=== PATIENT | male | born 1965 | race Hispanic/Latino ===

== ENCOUNTER 2017-09-09 21:02 | Inpatient (IN) | payer SELFPAY ==
--- NOTE | 2017-09-09 21:14 | CP.PCM.CON ---
Past Patient History - Tetanus Immunizations Tetanus Immunization: Unknown - Past Social History Smoking Status: Current Some Days Smoker - CARDIAC Hx Hypertension: Yes - PULMONARY Hx Respiratory Disorders: No - NEUROLOGICAL Hx Neurological Disorder: No - HEENT Hx HEENT Problems: No - RENAL Hx Chronic Kidney Disease: No - ENDOCRINE/METABOLIC Hx Endocrine Disorders: No - HEMATOLOGICAL/ONCOLOGICAL Hx Blood Disorders: No - INTEGUMENTARY Hx Dermatological Problems: No - MUSCULOSKELETAL/RHEUMATOLOGICAL Hx Gout: Yes - GASTROINTESTINAL Hx Gastrointestinal Disorders: No - GENITOURINARY/GYNECOLOGICAL Hx Genitourinary Disorders: No - PSYCHIATRIC Hx Anxiety: Yes Hx Depression: Yes Hx Emotional Abuse: No Hx Physical Abuse: No Hx Substance Use: No Meds Allergies/Adverse Reactions: Allergies Allergy/AdvReac Type Severity Reaction Status Date / Time Penicillins Allergy RASH Verified 09/09/17 21:06 Results - Vital Signs Recent Vital Signs: Last Vital Signs Temp 98.4 F 09/09/17 21:11 Pulse 100 H 09/09/17 21:11 Resp 18 09/09/17 21:11 BP 165/115 H 09/09/17 21:11 Pulse Ox 98 09/09/17 21:11
[2017-09-09 21:16] LABS: BASO # 0.04 K/mm3 (0.0-2.0); BASO % 0.4 % (0.0-3.0); EOS # 0.3 (0.0-0.7); EOS % 3.2 % (1.5-5.0); GRAN # 4.93 (1.4-6.5); GRAN % 53.6 % (50.0-68.0); HEMOGLOBIN 16.5 g/dL (14.0-18.0); LYMPH # 2.7 (1.2-3.4); LYMPH % 29.7 % (22.0-35.0); MEAN CELL VOLUME 90.3 fl (80.0-105.0); MEAN CORPUSCULAR HEMOGLOBIN 32.1 pg (25.0-35.0); MEAN CORPUSCULAR HGB CONC 35.6 g/dl (31.0-37.0); MEAN PLATELET VOLUME 9.9 fl (7.0-11.0); MONO # 1.2 (0.1-0.6); MONO % 13.1 % (1.0-6.0); RBC 5.14 10^6/uL (3.5-6.1); WHITE BLOOD COUNT 9.2 10^3/ul (4.5-11.0)
[2017-09-09 21:23] LABS: ALB/GLOB RATIO 1.6 (1.1-1.8); ALBUMIN 4.4 g/dL (3.0-4.8); ALT/SGPT 49 U/L (7-56); AST/SGOT 37 U/L (17-59); BLOOD UREA NITROGEN 19 mg/dL (7-21); CALCIUM 8.9 mg/dL (8.4-10.5); GFR AFRICAN-AMERICAN > 60; GFR NON-AFRICAN AMERICAN > 60
[2017-09-09] MEDS ORDERED: Phenylephrine 10 mg/ml Inj ONE (21:24)
[2017-09-09] MEDS ORDERED: Midazolam 2 MG/2 ML VIAL ONE ×2 (21:24→21:45)
[2017-09-09] MEDS ORDERED: Lidocaine 2% Inj (20ml) ONE (21:24)
--- NOTE | 2017-09-09 21:24 | CP.PCM.HP ---
<Lili Pritchard - Last Filed: 09/09/17 21:50> History of Present Illness - History of Present Illness History of Present Illness: 51yo male PMHx HTN was BIBA from [facility] ER for chest pain. Patient reports he began to experience an epigastric burning sensation that started 1-2 hours ago. Patient was swimming in the pool with his son at the time and eating a meal when he began to experience some left shoulder pain that radiated to his left back. Patient described the pain as more of a discomfort like he had " eaten icecream too fast." He denied any associated nausea, vomiting, palpitations, dyspnea, diaphoresis, and dizziness. Patient took asa 81mg prior to going to the [facility] ER. Prior to arrival at [facility] patient was given 180mg brillinta and 5000U heparin bolus. On complete ROS patient denied any fever, chills, headache, cough, abd pain, bowel/bladder complaints, pain/swelling in his legs b/l. He denied any recent travel/sick contacts. PMHx: HTN PSurgHx: denies Meds: Benicar- compliant ALL: PCN- rash SocHx: tobacco use 1ppd [quit for 5 years 6 years ago], EtOH socially [1-2 glasses with a meal], denies drug use. Business open winder FamHx: father liver ca; denies CVA/[place] PMD: Dr Goss Pharmacy: [facility] Present on Admission - Present on Admission Any Indicators Present on Admission: No Review of Systems - Review of Systems All systems: reviewed and no additional remarkable complaints except Review of Systems: as per HPI Past Patient History - Tetanus Immunizations Tetanus Immunization: Unknown - Past Social History Smoking Status: Current Some Days Smoker - CARDIAC Hx Hypertension: Yes - PULMONARY Hx Respiratory Disorders: No - NEUROLOGICAL Hx Neurological Disorder: No - HEENT Hx HEENT Problems: No - RENAL Hx Chronic Kidney Disease: No - ENDOCRINE/METABOLIC Hx Endocrine Disorders: No - HEMATOLOGICAL/ONCOLOGICAL Hx Blood Disorders: No - INTEGUMENTARY Hx Dermatological Problems: No - MUSCULOSKELETAL/RHEUMATOLOGICAL Hx Gout: Yes - GASTROINTESTINAL Hx Gastrointestinal Disorders: No - GENITOURINARY/GYNECOLOGICAL Hx Genitourinary Disorders: No - PSYCHIATRIC Hx Anxiety: Yes Hx Depression: Yes Hx Emotional Abuse: No Hx Physical Abuse: No Hx Substance Use: No Meds Allergies/Adverse Reactions: Allergies Allergy/AdvReac Type Severity Reaction Status Date / Time Penicillins Allergy RASH Verified 09/09/17 21:06 Physical Exam - Constitutional Appears: Non-toxic, No Acute Distress - Head Exam Head Exam: ATRAUMATIC, NORMAL INSPECTION, NORMOCEPHALIC - Eye Exam Eye Exam: EOMI, Normal appearance, PERRL. absent: Conjunctival injection, Scleral icterus Pupil Exam: NORMAL ACCOMODATION - ENT Exam ENT Exam: Mucous Membranes Moist - Neck Exam Neck exam: Positive for: Full Rom - Respiratory Exam Respiratory Exam: Clear to Auscultation Bilateral, NORMAL BREATHING PATTERN. absent: Accessory Muscle Use, Rales, Rhonchi, Wheezes - Cardiovascular Exam Cardiovascular Exam: Tachycardia, +S1, +S2. absent: Systolic Murmur - GI/Abdominal Exam GI & Abdominal Exam: Normal Bowel Sounds, Soft. absent: Firm, Guarding, Rigid, Tenderness - Rectal Exam Rectal Exam: Deferred - Extremities Exam Extremities exam: Positive for: normal capillary refill, normal inspection, pedal pulses present. Negative for: pedal edema - Neurological Exam Neurological exam: Alert, Oriented x3 - Psychiatric Exam Psychiatric exam: Normal Affect, Normal Mood - Skin Skin Exam: Dry, Intact Additional comments: erythematous (sunburn) Results - Vital Signs Recent Vital Signs: Last Vital Signs Temp 98.4 F 09/09/17 21:11 Pulse 100 H 09/09/17 21:11 Resp 18 09/09/17 21:11 BP 165/115 H 09/09/17 21:11 Pulse Ox 98 09/09/17 21:11 - Labs Result Diagrams: 09/09/17 21:08 09/09/17 21:08 Labs: Laboratory Results - last 24 hr 09/09/17 21:08 WBC 9.2 RBC 5.14 Hgb 16.5 Hct 46.4 MCV 90.3 MCH 32.1 MCHC 35.6 RDW 14.0 Plt Count 219 MPV 9.9 Gran % 53.6 Lymph % (Auto) 29.7 [place] % (Auto) 13.1 H Eos % (Auto) 3.2 Baso % (Auto) 0.4 Gran # 4.93 Lymph # (Auto) 2.7 [place] # (Auto) 1.2 H Eos # (Auto) 0.3 Baso # (Auto) 0.04 Assessment & Plan - Assessment and Plan (Free Text) Assessment: 51yo male PMHx HTN [facility]. Code heart called for inferior [place] with ST elevations in lead II, III, AVF. Patient received ASA 81 , Brilinta 180, and Heparin 5000u bolus prior to be transferred for cardiac cath with Dr. Smallwood. Patient to be admitted to CCU for observation post cath. Additional reccs by cardio appreciated. Discussed with Dr. Gareth Pritchard PGY2 <Xavier Servin - Last Filed: 09/10/17 01:47> Results - Vital Signs Recent Vital Signs: Last Vital Signs Temp 98.0 F 09/09/17 22:28 Pulse 87 09/09/17 22:43 Resp 17 09/09/17 22:28 BP 149/87 09/09/17 22:43 Pulse Ox 99 09/09/17 21:26 - Labs Result Diagrams: 09/09/17 21:08 09/09/17 21:08 Labs: Laboratory Results - last 24 hr 09/09/17 09/09/17 22:27 23:06 Blood Type O POSITIVE Blood Type Confirm O POSITIVE Antibody Screen Negative BBK History Checked No verified bt Attending/Attestation - Attestation I have personally seen and examined this patient.: Yes I have fully participated in the care of the patient.: Yes I have reviewed all pertinent clinical information: Yes Notes (Text): Patient seen and examined with the residents. Agree with above chest pain attributed to ACS - code Heart called CAD and PCI with ALEJANDRO to the RCA Cardio to follow
[2017-09-09] MEDS ORDERED: Iodixanol 320 MG/ML 200 ML BOTTLE IV ONE (21:25)
[2017-09-09] MEDS ORDERED: Iodixanol 320 MG/ML 100 ML BOTTLE IV ONE (21:25)
[2017-09-09] MEDS ORDERED: Iohexol 350mgl/ml 50 ML ONE (21:25)
--- NOTE | 2017-09-09 21:25 | ED PDOC ---
Arrival/HPI - General Chief Complaint: Chest Pain Time Seen by Provider: 09/09/17 21:04 Historian: Patient - Critical Care Critical Care Minutes: 45 minutes - History of Present Illness Narrative History of Present Illness (Text): 09/09/17 21:02 A 51 year old male, whose past medical history includes hypertension, is brought in by EMS presents to the emergency department complaining of chest pain , left shoulder pain, and back pain 1 hour [employer]. Patient was originally at the [facility] ER and was diagnosed with STEMI. Aspirin, Brilinta, and Heparin were initiated. Patient states pain is resolving, with severity rate of 1/10 at this time. Patient mentions he has no history of ND. Patient denies any other complaints. PMD: Dr. Goss Past Medical History - Provider Review Nursing Documentation Reviewed: Yes - Tetanus Immunization Tetanus Immunization: Unknown - Cardiac Hx Hypertension: Yes - Pulmonary Hx Respiratory Disorders: No - Neurological Hx Neurological Disorder: No - HEENT Hx HEENT Disorder: No - Renal Hx Renal Disorder: No - Endocrine/Metabolic Hx Endocrine Disorders: No - Hematological/Oncological Hx Blood Disorders: No - Integumentary Hx Dermatological Disorder: No - Musculoskeletal/Rheumatological Hx Gout: Yes - Gastrointestinal Hx Gastrointestinal Disorders: No - Genitourinary/Gynecological Hx Genitourinary Disorders: No - Psychiatric Hx Anxiety: Yes Hx Depression: Yes Hx Emotional Abuse: No Hx Physical Abuse: No Hx Substance Use: No - Past Surgical History Past Surgical History: No Previous - Suicidal Assessment Feels Threatened In Home Enviroment: No Family/Social History - Physician Review Nursing Documentation Reviewed: Yes Family/Social History: No Known Family HX Smoking Status: Current Some Days Smoker Hx Alcohol Use: No Hx Substance Use: No Hx Substance Use Treatment: No Allergies/Home Meds Allergies/Adverse Reactions: Allergies Penicillins Allergy (Verified 09/09/17 21:06) RASH Home Medications: Home Meds Medication Instructions Recorded Confirmed Olmesartan Medoxomil [Benicar] DAILY 09/09/17 Review of Systems - Physician Review All systems were reviewed & negative as marked: Yes - Review of Systems Constitutional: absent: Fevers, Night Sweats Respiratory: absent: SOB, Cough Cardiovascular: Chest Pain (resolving upon arrival to the ER (currently 1/10 severity)). absent: Palpitations Gastrointestinal: absent: Abdominal Pain, Diarrhea, Nausea, Vomiting Musculoskeletal: Back Pain, Other (left shoulder pain) Neurological: absent: Headache, Dizziness, Focal Weakness, Gait Changes Psychiatric: absent: Anxiety Physical Exam Vital Signs Reviewed: Yes Vital Signs Temp Pulse Resp BP Pulse Ox 09/09/17 21:21 98 H 28 H 151/100 H 97 09/09/17 21:11 98.4 F 100 H 18 165/115 H 98 09/09/17 21:08 102 H 24 165/115 H 97 Temperature: Afebrile Blood Pressure: Hypertensive Pulse: Regular Respiratory Rate: Normal Appearance: Positive for: Well-Appearing Pain Distress: None Mental Status: Positive for: Alert and Oriented X 3 - Systems Exam Head: Present: Atraumatic, Normocephalic Pupils: Present: PERRL Extroacular Muscles: Present: EOMI Conjunctiva: Present: Normal Mouth: Present: Moist Mucous Membranes Neck: Present: Normal Range of Motion Respiratory/Chest: Present: Clear to Auscultation, Good Air Exchange. No: Respiratory Distress, Accessory Muscle Use Cardiovascular: Present: Regular Rate and Rhythm, Normal S1, S2. No: Murmurs Abdomen: No: Tenderness, Distention, Peritoneal Signs Back: Present: Normal Inspection Upper Extremity: Present: Normal Inspection. No: Cyanosis, Edema Lower Extremity: Present: Normal Inspection. No: Edema Neurological: Present: GCS=15, CN II-XII Intact, Speech Normal Skin: Present: Warm, Dry, Normal Color. No: Rashes Psychiatric: Present: Alert, Oriented x 3, Normal Insight, Normal Concentration Medical Decision Making ED Course and Treatment: 09/09/17 21:06 Impression: 51 year old male with chest pain, left shoulder pain, and back pain. Physical exam is benign. Plan: -- EKG -- Chest X-ray -- Labs -- Urinalysis -- Reassess and disposition Progress Notes: 09/09/17 21:02 Code heart called. - Lab Interpretations Lab Results: 09/09/17 21:08 09/09/17 21:08 Lab Results 09/09/17 21:08: Sodium 141, Potassium 3.3 L, Chloride 105, Carbon Dioxide 21, Anion Gap 18, BUN 19, Creatinine 1.0, Est GFR ( Amer) > 60, Est GFR (Non- Af Amer) > 60, Random Glucose 124 H, Calcium 8.9, Magnesium 2.0, Total Bilirubin 0.5, AST 37, ALT 49, Alkaline Phosphatase 91, Lactate Dehydrogenase 375, Total Creatine Kinase 135, Troponin I Pending, Total Protein 7.2, Albumin 4.4, Globulin 2.8, Albumin/Globulin Ratio 1.6 09/09/17 21:08: WBC 9.2, RBC 5.14, Hgb 16.5, Hct 46.4, MCV 90.3, MCH 32.1, MCHC 35.6, RDW 14.0, Plt Count 219, MPV 9.9, Gran % 53.6, Lymph % (Auto) 29.7, [place] % (Auto) 13.1 H, Eos % (Auto) 3.2, Baso % (Auto) 0.4, Gran # 4.93, Lymph # (Auto ) 2.7, [place] # (Auto) 1.2 H, Eos # (Auto) 0.3, Baso # (Auto) 0.04 - RAD Interpretation Radiology Orders: 09/09/17 21:06 CHEST PORTABLE [RAD] Stat - Scribe Statement The provider has reviewed the documentation as recorded by the Pacheco Yoder Provider Scribe Attestation: All medical record entries made by the Lauraibmontez were at my direction and personally dictated by me. I have reviewed the chart and agree that the record accurately reflects my personal performance of the history, physical exam, medical decision making, and the department course for this patient. I have also personally directed, reviewed, and agree with the discharge instructions and disposition. Disposition/Present on Arrival - Present on Arrival History of DVT/PE: No History of Uncontrolled Diabetes: No Urinary Catheter: No History of Decub. Ulcer: No History Surgical Site Infection Following: None - Disposition
[2017-09-09 21:29] LABS: INR 0.94 (0.93-1.08); PROTHROMBIN TIME 10.7 SECONDS (9.4-12.5)
[2017-09-09 21:34] LABS: TROPONIN I 0.01 ng/mL
[2017-09-09 21:41] LABS: PARTIAL THROMBOPLASTIN TIME 147.9 Seconds (25.1-36.5)
[2017-09-09] MEDS ORDERED: Sodium Chloride 0.9% 1,000 ML IV SCH (22:15)
[2017-09-09] MEDS ORDERED: Potassium Chloride 20 mEq ER Tab PO ONE (22:39)
[2017-09-09] MEDS: Morphine 2 mg/ml ISec IVP PRN (22:43)
[2017-09-09 23:08] VITALS: BMI 36.1
[2017-09-10] MEDS: Morphine 2 mg/ml ISec IVP PRN (03:13)
--- NOTE | 2017-09-10 04:07 | CARDCATH ---
PROCEDURE DATE: 09/09/2017 CARDIAC CATHETERIZATION INTERVENTION REPORT PROCEDURES: 1. Selective left and right coronary angiography. 2. Percutaneous coronary intervention of right coronary artery with drug-eluting stent. 3. Right femoral arteriography. 4. Angio-Seal deployment. HISTORY: This is a 51-year-old man with the history of hypertension, tobacco abuse, who [facility] with the chest [facility]. EKG showed evidence of acute inferior wall myocardial infarction, was transferred emergently for emergency catheterization. INDICATION: Acute myocardial infarction. FINDINGS: HEMODYNAMICS: The aortic pressure was 150/70. Left ventricular pressure was not measured. CORONARY ANATOMY: 1. Left mainstem was long and normal. 2. Left anterior descending artery had mild diffuse irregularities present in its mid and distal segment. The diagonal branches had evidence of mild diffuse disease. 3. Left circumflex artery had evidence of [id number] irregularities in its mid portion up to 50% severity. The obtuse marginal branches had no significant disease. 4. The right coronary artery was large and dominant. This had a long complex irregular stenosis in the early midportion of the vessel varying from 80% to 90% in severity with the evidence of thrombus. Distally the vessel had diffuse irregularities with 50% lesion in the early distal segment of the vessel. The PDA and PLV branches were fairly free of disease. CORONARY INTERVENTION: A total of 7000 units of intravenous heparin was administered. A JR4 guide catheter was utilized and the lesion in the RCA was successfully coursed with the use of a [place] wire. Following this the inflation was performed with the use of 3 x 12 mm balloon in the region of the stenosis. The balloon was removed and following this a 3.5 x 26 mm Resolute [place] drug-eluting stent was advanced and deployed to 16 atmospheres. There was 0% residual stenosis following the intervention. KATHERIN grade 3 flow was present at the end of the procedure. RIGHT FEMORAL ARTERIOGRAPHY: A right femoral arteriogram was performed in the GIRON projection. This revealed no evidence of significant disease and appropriate level of arterial puncture. The puncture site was closed then with deployment of an Angio-Seal device. CONCLUSION: 1. ST myocardial infarction secondary to severe right coronary artery stenosis is successfully treated with drug-eluting stent. 2. Moderate circumflex and distal right coronary artery disease. RECOMMENDATIONS: Patient will be admitted to CCU and continue on aspirin, Brilinta, statin and beta-anika therapy. Serial enzymes and electrocardiograms will be obtained. Smoking abstinence was recommended. Ezequile Powell MD cc: Olivier Goss MD
[2017-09-10 06:26] LABS: BASO # 0.03 K/mm3 (0.0-2.0); BASO % 0.3 % (0.0-3.0); EOS # 0.2 (0.0-0.7); EOS % 1.9 % (1.5-5.0); GRAN # 5.94 (1.4-6.5); GRAN % 59.9 % (50.0-68.0); HEMOGLOBIN 15.9 g/dL (14.0-18.0); LYMPH # 2.2 (1.2-3.4); LYMPH % 22.1 % (22.0-35.0); MEAN CELL VOLUME 91.1 fl (80.0-105.0); MEAN CORPUSCULAR HEMOGLOBIN 31.6 pg (25.0-35.0); MEAN CORPUSCULAR HGB CONC 34.7 g/dl (31.0-37.0); MEAN PLATELET VOLUME 9.8 fl (7.0-11.0); MONO # 1.6 (0.1-0.6); MONO % 15.8 % (1.0-6.0); RBC 5.03 10^6/uL (3.5-6.1); RED CELL DISTRIBUTION WIDTH 14.2 % (11.5-14.5); WHITE BLOOD COUNT 9.9 10^3/ul (4.5-11.0)
[2017-09-10 06:32] LABS: ALT/SGPT 47 U/L (7-56); CALCIUM 8.6 mg/dL (8.4-10.5); HDL CHOLESTEROL 38 mg/dL (29-60)
[2017-09-10] MEDS: Pantoprazole 40 mg EC Tab PO SCH (06:39)
[2017-09-10 06:43] LABS: LDL CHOLESTEROL 119 mg/dL (0-129)
[2017-09-10 07:22] LABS: ALB/GLOB RATIO 1.4 (1.1-1.8); ALBUMIN 3.9 g/dL (3.0-4.8); AST/SGOT 62 U/L (17-59); BLOOD UREA NITROGEN 16 mg/dL (7-21); CK MB% 9.7 % (2.5-3.0); CK-MB 45.8 ng/mL (0.0-3.6); GFR AFRICAN-AMERICAN > 60; GFR NON-AFRICAN AMERICAN > 60; TROPONIN I 7.42 ng/mL
--- NOTE | 2017-09-10 08:06 | CON ---
DATE: 09/09/2017 REQUESTING PHYSICIAN: Olivier Goss MD REASON FOR CONSULTATION: Acute myocardial infarction. HISTORY OF PRESENT ILLNESS: This is a 51-year-old male with history of hypertension and tobacco abuse, who presented to [facility] Emergency Room with chest discomfort. EKG showed evidence of inferior myocardial infarction. He was transferred emergently for a catheterization. The patient denies any prior cardiac history. He states that his pain began approximately one hour prior to the presenting. He states that it felt like an elephant sitting on his chest. He was treated with aspirin, Brilinta, and IV heparin and feels somewhat better upon arrival, but still had some residual chest pain. He does have history of hypertension. He is not diabetic. He believes his cholesterol is somewhat elevated. He is a smoker, more than a pack per day. There is no family history of premature heart disease. PAST MEDICAL HISTORY: Otherwise, unremarkable. MEDICATIONS: At home, aspirin and Benicar. ALLERGIES: PENICILLIN. SOCIAL HISTORY: He is a smoker as mentioned. Drinks alcohol occasionally. He works as a salesman. FAMILY HISTORY: Unremarkable for premature heart disease. REVIEW OF SYSTEMS: A 10-point review of systems is unremarkable. PHYSICAL EXAMINATION: GENERAL: He is a overweight, middle-aged man. VITAL SIGNS: Blood pressure is 150/70, pulse of 110, respirations are 16. He is afebrile. HEENT: No JVD. CHEST: Few scattered rhonchi noted. HEART: PMI displaced laterally. No pathological rubs noted. ABDOMEN: Soft and nontender. Normoactive bowel sounds. EXTREMITIES: No edema. SKIN: Warm and dry. PSYCHIATRIC: Normal mood and affect. DIAGNOSTIC DATA: Electrocardiogram reveals ST elevation in the inferior leads with reciprocal ST depressions. Initial blood work reveal the potassium 3.3, BUN and creatinine 19 and 1, white count 9.2, hemoglobin and hematocrit 16.5 and 46.4, platelet count is 219,000. PTT is 147. Troponin is 0.01. IMPRESSION: 1. Acute inferior myocardial infarction. 2. History of tobacco abuse and hypertension. RECOMMENDATIONS: The patient will be referred to emergently to Catheterization Lab and undergo emergency catheterization and possible PCI if a suitable lesion is found. The risks and benefits have been discussed with the patient. He is agreeable to proceed. Further recommendations will be made based upon his clinical course. Ezequiel Powell MD [facility] # [id number] SERA
--- NOTE | 2017-09-10 09:24 | RAD ---
HISTORY: stemi COMPARISON: 01/25/2012 FINDINGS: LUNGS: No active pulmonary disease. PLEURA: No significant pleural effusion identified, no pneumothorax apparent. CARDIOVASCULAR: Normal. OSSEOUS STRUCTURES: No significant abnormalities. VISUALIZED UPPER ABDOMEN: Normal. OTHER FINDINGS: None. IMPRESSION: No active disease.
--- NOTE | 2017-09-10 09:41 | CARD ---
APPROVED REPORT EKG Measurement Heart [id number] [id number] <Conclusion> Sinus tachycardia St elevation in II, Avf with Q wave in II and Avf Recent ME, corelate clinically Abnormal ECG
--- NOTE | 2017-09-10 11:28 | CP.CCUPN ---
Addendum entered and electronically signed by Sean Giron DO 12:02: Per Dr. Fajardo, patient will be transferred to [facility]. Will allow Dr. Fajardo to determine restarting Prophylactic measures Original Note: <Sean Giron - Last Filed: 09/10/17 11:18> CCU Subjective - Physician Review Events Since Last Encounter (Free Text): 09/10/17 07:30A Patient seen and examined at bedside. Patient is status post catheterization with one stent placed in RCA. CCU Objective - Vital Signs / Intake & Output Vital Signs (Last 4 hours): Vital Signs Pulse Resp BP Pulse Ox 09/10/17 11:00 66 24 98/56 L 97 09/10/17 10:50 78 43 H 99 09/10/17 10:41 71 25 H 120/76 96 09/10/17 10:40 78 26 H 97 09/10/17 10:30 97 09/10/17 10:20 98 09/10/17 10:10 96 09/10/17 10:00 68 96 09/10/17 09:50 98 09/10/17 09:40 96 09/10/17 09:30 78 20 96 09/10/17 09:20 76 19 98 09/10/17 09:17 74 123/80 09/10/17 09:15 75 26 H 123/80 96 09/10/17 09:10 75 24 96 09/10/17 09:00 77 25 H 134/89 97 09/10/17 08:50 74 26 H 97 09/10/17 08:45 75 28 H 128/78 97 09/10/17 08:40 80 32 H 97 09/10/17 08:31 73 27 H 133/88 97 09/10/17 08:30 74 23 97 09/10/17 08:25 76 26 H 124/92 H 95 09/10/17 08:20 75 26 H 81 L 09/10/17 08:10 65 19 96 09/10/17 08:01 66 21 115/54 L 97 09/10/17 08:00 66 21 97 09/10/17 07:50 66 22 97 09/10/17 07:45 71 22 123/73 97 09/10/17 07:40 71 19 97 09/10/17 07:30 69 24 129/88 98 09/10/17 07:20 77 20 100 Intake and Output (Last 8hrs): Intake & Output 09/09/17 09/10/17 09/10/17 22:59 06:59 14:59 Weight 124.194 kg - Physical Exam Head: Positive for: Atraumatic, Normocephalic Pupils: Positive for: PERRL Extroacular Muscles: Positive for: EOMI Conjunctiva: Positive for: Normal Mouth: Positive for: Moist Mucous Membranes Neck: Positive for: Normal Range of Motion Respiratory/Chest: Positive for: Clear to Auscultation, Good Air Exchange. Negative for: Respiratory Distress, Accessory Muscle Use Cardiovascular: Positive for: Regular Rate and Rhythm, Normal S1, S2. Negative for: Murmurs Abdomen: Negative for: Tenderness, Distention, Peritoneal Signs Back: Positive for: Normal Inspection Upper Extremity: Positive for: Normal Inspection. Negative for: Cyanosis, Edema Lower Extremity: Positive for: Normal Inspection. Negative for: Edema Neurological: Positive for: GCS=15, CN II-XII Intact, Speech Normal Skin: Positive for: Warm, Dry, Normal Color. Negative for: Rashes Psychiatric: Positive for: Alert, Oriented x 3, Normal Insight, Normal Concentration - Medications Active Medications: Active Medications Generic Name Dose Route Start Last Admin Trade Name Freq PRN Reason Stop Dose Admin Acetaminophen 650 mg 09/09/17 22:12 Tylenol 325mg Tab PO Q4H PRN Pain, Mild (1-3) Alprazolam 0.25 mg 09/09/17 22:12 Xanax PO 09/16/17 22:13 BID PRN Anxiety Aspirin 81 mg 09/10/17 10:00 09/10/17 09:17 Ecotrin PO 81 mg DAILY PRESLEY Administration Atorvastatin Calcium 80 mg 09/10/17 17:00 Lipitor PO DIN PRESLEY Docusate Sodium 100 mg 09/10/17 10:00 09/10/17 09:17 Colace PO 100 mg BID PRESLEY Administration Metoprolol Tartrate 25 mg 09/09/17 22:15 09/10/17 09:17 Lopressor PO 25 mg Q12H PRESLEY Administration Morphine Sulfate 2 mg 09/09/17 22:31 09/10/17 03:13 Morphine IVP 2 mg Q4H PRN Administration Pain, moderate (4-7) Ondansetron HCl 4 mg 09/09/17 22:12 Zofran Inj IV ONCE PRN Nausea/Vomiting Pantoprazole Sodium 40 mg 09/10/17 06:00 09/10/17 06:39 Protonix Ec Tab PO 40 mg 0600 PRESLEY Administration Ticagrelor 90 mg 09/10/17 10:00 09/10/17 09:18 Brilinta PO 90 mg BID PRESLEY Administration Zolpidem Tartrate 5 mg 09/09/17 22:12 09/09/17 23:50 Ambien PO 5 mg HS PRN Administration Insomnia - Patient Studies Lab Studies: Lab Studies 09/10/17 09/10/17 09/09/17 Range/Units 05:30 05:30 23:06 WBC 9.9 (4.5-11.0) 10^3/ul RBC 5.03 (3.5-6.1) 10^6/uL Hgb 15.9 (14.0-18.0) g/dL Hct 45.8 (42.0-52.0) % MCV 91.1 (80.0-105.0) fl MCH 31.6 (25.0-35.0) pg MCHC 34.7 (31.0-37.0) g/dl RDW 14.2 (11.5-14.5) % Plt Count 205 (120.0-450.0) 10^3/uL MPV 9.8 (7.0-11.0) fl Gran % 59.9 (50.0-68.0) % Lymph % (Auto) 22.1 (22.0-35.0) % Titus % (Auto) 15.8 H (1.0-6.0) % Eos % (Auto) 1.9 (1.5-5.0) % Baso % (Auto) 0.3 (0.0-3.0) % Gran # 5.94 (1.4-6.5) Lymph # (Auto) 2.2 (1.2-3.4) Titus # (Auto) 1.6 H (0.1-0.6) Eos # (Auto) 0.2 (0.0-0.7) Baso # (Auto) 0.03 (0.0-2.0) K/mm3 Sodium 140 (132-148) mmol/L Potassium 3.9 (3.6-5.0) mmol/L Chloride 106 (98-107) mmol/L Carbon Dioxide 23 (21-33) mmol/L Anion Gap 15 (10-20) BUN 16 (7-21) mg/dL Creatinine 0.8 (0.8-1.5) mg/dl Est GFR ( Amer) > 60 Est GFR (Non-Af Amer) > 60 Random Glucose 96 (70-110) mg/dL Calcium 8.6 (8.4-10.5) mg/dL Phosphorus 4.4 (2.5-4.5) mg/dL Magnesium 2.0 (1.7-2.2) mg/dL Total Bilirubin 0.6 (0.2-1.3) mg/dL AST 62 H D (17-59) U/L ALT 47 (7-56) U/L Alkaline Phosphatase 61 (38-126) U/L Lactate Dehydrogenase 427 (333-699) U/L Total Creatine Kinase 474 H (35-230) U/L CK-MB (CK-2) 45.8 H (0.0-3.6) ng/mL CK-MB (CK-2) % 9.7 H (2.5-3.0) % Troponin I 7.42 H* D ng/mL Total Protein 6.6 (5.8-8.3) g/dL Albumin 3.9 (3.0-4.8) g/dL Globulin 2.7 gm/dL Albumin/Globulin Ratio 1.4 (1.1-1.8) Triglycerides 176 H (35-160) mg/dL Cholesterol 185 (130-200) mg/dL LDL Cholesterol Direct 119 (0-129) mg/dL HDL Cholesterol 38 (29-60) mg/dL Blood Type Blood Type Confirm O POSITIVE Antibody Screen BBK History Checked 09/09/17 Range/Units 22:27 WBC (4.5-11.0) 10^3/ul RBC (3.5-6.1) 10^6/uL Hgb (14.0-18.0) g/dL Hct (42.0-52.0) % MCV (80.0-105.0) fl MCH (25.0-35.0) pg MCHC (31.0-37.0) g/dl RDW (11.5-14.5) % Plt Count (120.0-450.0) 10^3/uL MPV (7.0-11.0) fl Gran % (50.0-68.0) % Lymph % (Auto) (22.0-35.0) % Titus % (Auto) (1.0-6.0) % Eos % (Auto) (1.5-5.0) % Baso % (Auto) (0.0-3.0) % Gran # (1.4-6.5) Lymph # (Auto) (1.2-3.4) Titus # (Auto) (0.1-0.6) Eos # (Auto) (0.0-0.7) Baso # (Auto) (0.0-2.0) K/mm3 Sodium (132-148) mmol/L Potassium (3.6-5.0) mmol/L Chloride (98-107) mmol/L Carbon Dioxide (21-33) mmol/L Anion Gap (10-20) BUN (7-21) mg/dL Creatinine (0.8-1.5) mg/dl Est GFR ( Amer) Est GFR (Non-Af Amer) Random Glucose (70-110) mg/dL Calcium (8.4-10.5) mg/dL Phosphorus (2.5-4.5) mg/dL Magnesium (1.7-2.2) mg/dL Total Bilirubin (0.2-1.3) mg/dL AST (17-59) U/L ALT (7-56) U/L Alkaline Phosphatase (38-126) U/L Lactate Dehydrogenase (333-699) U/L Total Creatine Kinase (35-230) U/L CK-MB (CK-2) (0.0-3.6) ng/mL CK-MB (CK-2) % (2.5-3.0) % Troponin I ng/mL Total Protein (5.8-8.3) g/dL Albumin (3.0-4.8) g/dL Globulin gm/dL Albumin/Globulin Ratio (1.1-1.8) Triglycerides (35-160) mg/dL Cholesterol (130-200) mg/dL LDL Cholesterol Direct (0-129) mg/dL HDL Cholesterol (29-60) mg/dL Blood Type O POSITIVE Blood Type Confirm Antibody Screen Negative BBK History Checked No verified bt Laboratory Results - last 24 hr 09/09/17 09/09/17 09/10/17 22:27 23:06 05:30 WBC 9.9 RBC 5.03 Hgb 15.9 Hct 45.8 MCV 91.1 MCH 31.6 MCHC 34.7 RDW 14.2 Plt Count 205 MPV 9.8 Gran % 59.9 Lymph % (Auto) 22.1 Titus % (Auto) 15.8 H Eos % (Auto) 1.9 Baso % (Auto) 0.3 Gran # 5.94 Lymph # (Auto) 2.2 Titus # (Auto) 1.6 H Eos # (Auto) 0.2 Baso # (Auto) 0.03 Sodium Potassium Chloride Carbon Dioxide Anion Gap BUN Creatinine Est GFR ( Amer) Est GFR (Non-Af Amer) Random Glucose Calcium Phosphorus Magnesium Total Bilirubin AST ALT Alkaline Phosphatase Lactate Dehydrogenase Total Creatine Kinase CK-MB (CK-2) CK-MB (CK-2) % Troponin I Total Protein Albumin Globulin Albumin/Globulin Ratio Triglycerides Cholesterol LDL Cholesterol Direct HDL Cholesterol Blood Type O POSITIVE Blood Type Confirm O POSITIVE Antibody Screen Negative BBK History Checked No verified bt 09/10/17 05:30 WBC RBC Hgb Hct MCV MCH MCHC RDW Plt Count MPV Gran % Lymph % (Auto) Titus % (Auto) Eos % (Auto) Baso % (Auto) Gran # Lymph # (Auto) Titus # (Auto) Eos # (Auto) Baso # (Auto) Sodium 140 Potassium 3.9 Chloride 106 Carbon Dioxide 23 Anion Gap 15 BUN 16 Creatinine 0.8 Est GFR ( Amer) > 60 Est GFR (Non-Af Amer) > 60 Random Glucose 96 Calcium 8.6 Phosphorus 4.4 Magnesium 2.0 Total Bilirubin 0.6 AST 62 H D ALT 47 Alkaline Phosphatase 61 Lactate Dehydrogenase 427 Total Creatine Kinase 474 H CK-MB (CK-2) 45.8 H CK-MB (CK-2) % 9.7 H Troponin I 7.42 H* D Total Protein 6.6 Albumin 3.9 Globulin 2.7 Albumin/Globulin Ratio 1.4 Triglycerides 176 H Cholesterol 185 LDL Cholesterol Direct 119 HDL Cholesterol 38 Blood Type Blood Type Confirm Antibody Screen BBK History Checked Assessment/Plan - Assessment and Plan (Free Text) Assessment: 51 year old male under ICU management for vitals monitoring after ALEJANDRO placement in RCA. CAD s/p ALEJANDRO placement HTN Plan: Neuro - Maintain normothermia - Patient's head can now be elevated Pulm - Maintain oxygen saturation >92% Cardio - Maintain MAP > 65 - Pt on Brilinta, ASA, Metoprolol, Lipitor; consider GERHARD-I GI - Protonix for PPX - Can stop fluids, patient has voided with no change in creatinine - Maintain euvolemia Heme - ASA Brilinta - Lovenox for PPX pending cardiology ID - No ID issues Endo - Maintain euglycemia <KleynFaizan - Last Filed: 09/10/17 12:16> CCU Objective - Vital Signs / Intake & Output Vital Signs (Last 4 hours): Vital Signs Pulse Resp BP Pulse Ox 09/10/17 11:00 66 24 98/56 L 97 09/10/17 10:50 78 43 H 99 09/10/17 10:41 71 25 H 120/76 96 09/10/17 10:40 78 26 H 97 09/10/17 10:30 97 09/10/17 10:20 98 09/10/17 10:10 96 09/10/17 10:00 68 96 09/10/17 09:50 98 09/10/17 09:40 96 09/10/17 09:30 78 20 96 09/10/17 09:20 76 19 98 09/10/17 09:17 74 123/80 09/10/17 09:15 75 26 H 123/80 96 09/10/17 09:10 75 24 96 09/10/17 09:00 77 25 H 134/89 97 09/10/17 08:50 74 26 H 97 09/10/17 08:45 75 28 H 128/78 97 09/10/17 08:40 80 32 H 97 09/10/17 08:31 73 27 H 133/88 97 09/10/17 08:30 74 23 97 09/10/17 08:25 76 26 H 124/92 H 95 09/10/17 08:20 75 26 H 81 L Intake and Output (Last 8hrs): Intake & Output 09/09/17 09/10/17 09/10/17 22:59 06:59 14:59 Weight 273 lb 12.8 oz - Medications Active Medications: Active Medications Generic Name Dose Route Start Last Admin Trade Name Freq PRN Reason Stop Dose Admin Acetaminophen 650 mg 09/09/17 22:12 Tylenol 325mg Tab PO Q4H PRN Pain, Mild (1-3) Alprazolam 0.25 mg 09/09/17 22:12 Xanax PO 09/16/17 22:13 BID PRN Anxiety Aspirin 81 mg 09/10/17 10:00 09/10/17 09:17 Ecotrin PO 81 mg DAILY PRESLEY Administration Atorvastatin Calcium 80 mg 09/10/17 17:00 Lipitor PO DIN PRESLEY Docusate Sodium 100 mg 09/10/17 10:00 09/10/17 09:17 Colace PO 100 mg BID PRESLEY Administration Metoprolol Tartrate 25 mg 09/09/17 22:15 09/10/17 09:17 Lopressor PO 25 mg Q12H PRESLEY Administration Morphine Sulfate 2 mg 09/09/17 22:31 09/10/17 03:13 Morphine IVP 2 mg Q4H PRN Administration Pain, moderate (4-7) Ondansetron HCl 4 mg 09/09/17 22:12 Zofran Inj IV ONCE PRN Nausea/Vomiting Pantoprazole Sodium 40 mg 09/10/17 06:00 09/10/17 06:39 Protonix Ec Tab PO 40 mg 0600 PRESLEY Administration Ticagrelor 90 mg 09/10/17 10:00 09/10/17 09:18 Brilinta PO 90 mg BID PRESLEY Administration Zolpidem Tartrate 5 mg 09/09/17 22:12 09/09/17 23:50 Ambien PO 5 mg HS PRN Administration Insomnia - Patient Studies Lab Studies: Lab Studies 09/10/17 09/10/17 09/10/17 Range/Units 05:30 05:30 05:30 WBC 9.9 (4.5-11.0) 10^3/ul RBC 5.03 (3.5-6.1) 10^6/uL Hgb 15.9 (14.0-18.0) g/dL Hct 45.8 (42.0-52.0) % MCV 91.1 (80.0-105.0) fl MCH 31.6 (25.0-35.0) pg MCHC 34.7 (31.0-37.0) g/dl RDW 14.2 (11.5-14.5) % Plt Count 205 (120.0-450.0) 10^3/uL MPV 9.8 (7.0-11.0) fl Gran % 59.9 (50.0-68.0) % Lymph % (Auto) 22.1 (22.0-35.0) % Titus % (Auto) 15.8 H (1.0-6.0) % Eos % (Auto) 1.9 (1.5-5.0) % Baso % (Auto) 0.3 (0.0-3.0) % Gran # 5.94 (1.4-6.5) Lymph # (Auto) 2.2 (1.2-3.4) Titus # (Auto) 1.6 H (0.1-0.6) Eos # (Auto) 0.2 (0.0-0.7) Baso # (Auto) 0.03 (0.0-2.0) K/mm3 Sodium 140 (132-148) mmol/L Potassium 3.9 (3.6-5.0) mmol/L Chloride 106 (98-107) mmol/L Carbon Dioxide 23 (21-33) mmol/L Anion Gap 15 (10-20) BUN 16 (7-21) mg/dL Creatinine 0.8 (0.8-1.5) mg/dl Est GFR ( Amer) > 60 Est GFR (Non-Af Amer) > 60 Random Glucose 96 (70-110) mg/dL Hemoglobin A1c 5.1 (4.2-6.5) % Calcium 8.6 (8.4-10.5) mg/dL Phosphorus 4.4 (2.5-4.5) mg/dL Magnesium 2.0 (1.7-2.2) mg/dL Total Bilirubin 0.6 (0.2-1.3) mg/dL AST 62 H D (17-59) U/L ALT 47 (7-56) U/L Alkaline Phosphatase 61 (38-126) U/L Lactate Dehydrogenase 427 (333-699) U/L Total Creatine Kinase 474 H (35-230) U/L CK-MB (CK-2) 45.8 H (0.0-3.6) ng/mL CK-MB (CK-2) % 9.7 H (2.5-3.0) % Troponin I 7.42 H* D ng/mL Total Protein 6.6 (5.8-8.3) g/dL Albumin 3.9 (3.0-4.8) g/dL Globulin 2.7 gm/dL Albumin/Globulin Ratio 1.4 (1.1-1.8) Triglycerides 176 H (35-160) mg/dL Cholesterol 185 (130-200) mg/dL LDL Cholesterol Direct 119 (0-129) mg/dL HDL Cholesterol 38 (29-60) mg/dL Blood Type Blood Type Confirm Antibody Screen BBK History Checked 09/09/17 09/09/17 Range/Units 23:06 22:27 WBC (4.5-11.0) 10^3/ul RBC (3.5-6.1) 10^6/uL Hgb (14.0-18.0) g/dL Hct (42.0-52.0) % MCV (80.0-105.0) fl MCH (25.0-35.0) pg MCHC (31.0-37.0) g/dl RDW (11.5-14.5) % Plt Count (120.0-450.0) 10^3/uL MPV (7.0-11.0) fl Gran % (50.0-68.0) % Lymph % (Auto) (22.0-35.0) % Titus % (Auto) (1.0-6.0) % Eos % (Auto) (1.5-5.0) % Baso % (Auto) (0.0-3.0) % Gran # (1.4-6.5) Lymph # (Auto) (1.2-3.4) Titus # (Auto) (0.1-0.6) Eos # (Auto) (0.0-0.7) Baso # (Auto) (0.0-2.0) K/mm3 Sodium (132-148) mmol/L Potassium (3.6-5.0) mmol/L Chloride (98-107) mmol/L Carbon Dioxide (21-33) mmol/L Anion Gap (10-20) BUN (7-21) mg/dL Creatinine (0.8-1.5) mg/dl Est GFR ( Amer) Est GFR (Non-Af Amer) Random Glucose (70-110) mg/dL Hemoglobin A1c (4.2-6.5) % Calcium (8.4-10.5) mg/dL Phosphorus (2.5-4.5) mg/dL Magnesium (1.7-2.2) mg/dL Total Bilirubin (0.2-1.3) mg/dL AST (17-59) U/L ALT (7-56) U/L Alkaline Phosphatase (38-126) U/L Lactate Dehydrogenase (333-699) U/L Total Creatine Kinase (35-230) U/L CK-MB (CK-2) (0.0-3.6) ng/mL CK-MB (CK-2) % (2.5-3.0) % Troponin I ng/mL Total Protein (5.8-8.3) g/dL Albumin (3.0-4.8) g/dL Globulin gm/dL Albumin/Globulin Ratio (1.1-1.8) Triglycerides (35-160) mg/dL Cholesterol (130-200) mg/dL LDL Cholesterol Direct (0-129) mg/dL HDL Cholesterol (29-60) mg/dL Blood Type O POSITIVE Blood Type Confirm O POSITIVE Antibody Screen Negative BBK History Checked No verified bt Laboratory Results - last 24 hr 09/09/17 09/09/17 09/10/17 22:27 23:06 05:30 WBC 9.9 RBC 5.03 Hgb 15.9 Hct 45.8 MCV 91.1 MCH 31.6 MCHC 34.7 RDW 14.2 Plt Count 205 MPV 9.8 Gran % 59.9 Lymph % (Auto) 22.1 Titus % (Auto) 15.8 H Eos % (Auto) 1.9 Baso % (Auto) 0.3 Gran # 5.94 Lymph # (Auto) 2.2 Titus # (Auto) 1.6 H Eos # (Auto) 0.2 Baso # (Auto) 0.03 Sodium Potassium Chloride Carbon Dioxide Anion Gap BUN Creatinine Est GFR ( Amer) Est GFR (Non-Af Amer) Random Glucose Hemoglobin A1c Calcium Phosphorus Magnesium Total Bilirubin AST ALT Alkaline Phosphatase Lactate Dehydrogenase Total Creatine Kinase CK-MB (CK-2) CK-MB (CK-2) % Troponin I Total Protein Albumin Globulin Albumin/Globulin Ratio Triglycerides Cholesterol LDL Cholesterol Direct HDL Cholesterol Blood Type O POSITIVE Blood Type Confirm O POSITIVE Antibody Screen Negative BBK History Checked No verified bt 09/10/17 09/10/17 05:30 05:30 WBC RBC Hgb Hct MCV MCH MCHC RDW Plt Count MPV Gran % Lymph % (Auto) Titus % (Auto) Eos % (Auto) Baso % (Auto) Gran # Lymph # (Auto) Titus # (Auto) Eos # (Auto) Baso # (Auto) Sodium 140 Potassium 3.9 Chloride 106 Carbon Dioxide 23 Anion Gap 15 BUN 16 Creatinine 0.8 Est GFR ( Amer) > 60 Est GFR (Non-Af Amer) > 60 Random Glucose 96 Hemoglobin A1c 5.1 Calcium 8.6 Phosphorus 4.4 Magnesium 2.0 Total Bilirubin 0.6 AST 62 H D ALT 47 Alkaline Phosphatase 61 Lactate Dehydrogenase 427 Total Creatine Kinase 474 H CK-MB (CK-2) 45.8 H CK-MB (CK-2) % 9.7 H Troponin I 7.42 H* D Total Protein 6.6 Albumin 3.9 Globulin 2.7 Albumin/Globulin Ratio 1.4 Triglycerides 176 H Cholesterol 185 LDL Cholesterol Direct 119 HDL Cholesterol 38 Blood Type Blood Type Confirm Antibody Screen BBK History Checked Attending/Attestation - Attestation I have personally seen and examined this patient.: Yes I have fully participated in the care of the patient.: Yes I have reviewed all pertinent clinical information: Yes Notes (Text): 09/10/17 12:14 The patient was seen and examined at the bedside. Patient care was discussed with resident Medical records, lab studies, and imaging were reviewed and management issues were discussed and formulated. Last 24H events reviewed. Agree with above treatment plans as outlined in 's note with addition of the following: STEMI \ -hemodynamic monitoring to maintain MAP>65 -f\u ECho; f\u serial CE and ECG -continue ACS medications (Asa, Brilinta, Statin , BBlocker and consider adding GERHARD \ ARB ) -s\p RCA stenting x1 as per cardiology team who are following -o2 supplementation to maintain Spo2>90 Pao2>60; currently comfortable on NC -f\u Bun\Cr and U\o -PO diet (cardiac ) and aspiration precautions -LE pulse checks -DVT \ PUD prophylaxis DW nursing staff and cardiology team CCM f\u 20min
--- NOTE | 2017-09-10 11:44 | PN ---
DATE: 09/10/2017 SUBJECTIVE: The patient is seen lying in bed in the CCU. He is currently comfortable. He has had no recurrent chest pain. He denies any dyspnea or pain at his catheterization access site. His followup troponin is 7.42. His current medications include Brilinta 90 mg b.i.d., aspirin 81 mg daily, Lipitor 80 mg daily, metoprolol 25 mg every 12 hours, Protonix 40 mg daily. OBJECTIVE: GENERAL: He is an overweight middle-aged man. VITAL SIGNS: His blood pressure is 122/80 with pulse of 66, respirations are 14. He is afebrile. HEENT: No JVD. CHEST: Clear to auscultation and percussion. HEART: PMI in normal position. No pathological murmur or gallops noted. ABDOMEN: Soft, mildly obese, nontender with bowel sounds. EXTREMITIES: Right groin shows no evidence of hematoma. There is no bruit or thrill. Distal pulses are 2+ bilaterally. DIAGNOSTIC DATA: Troponin is 7.42. CK is 474 with 9.7% MB fraction. Potassium is 3.9, BUN and creatinine are 16 and 0.8. White count 9.9, hemoglobin and hematocrit is15.9 and 45.8 with platelet count of 205,000. Morning electrocardiogram is pending. IMPRESSION: 1. Status post acute inferior wall myocardial infarction, successfully treated with drug-eluting stent placement last evening, clinically stable at present. 2. History of tobacco abuse. 3. History of hypertension and borderline hyperlipidemia. RECOMMENDATIONS: Current medications will be continued. Transfer to telemetry at this time would be reasonable. Followup enzymes, electrocardiogram to be obtained. Echocardiogram was ordered and is pending. The need for smoking abstinence and aggressive risk factor control was discussed with him. Hopefully, discharge within the next 24-48 hours will be possible. Ezequiel Powell MD
--- NOTE | 2017-09-10 12:16 | CP.PCM.PN ---
<Quyen Hernandez - Last Filed: 09/10/17 16:04> Subjective - Date & Time of Evaluation Date of Evaluation: 09/10/17 Time of Evaluation: 08:10 - Subjective Subjective: Quyen Hernandez DO, PGY-1: Hospitalist Service Patient seen and examined at bedside. Patient denies any chest pain, dyspnea, nausea or diaphoresis. Patient states pain is well controlled at the hematoma site. Nurse report no adverse events overnight. Objective - Vital Signs/Intake and Output Vital Signs (last 24 hours): Temp Pulse Resp BP Pulse Ox 98.2 F 66 24 98/56 L 97 09/10/17 00:00 09/10/17 11:00 09/10/17 11:00 09/10/17 11:00 09/10/17 11:00 - Medications Medications: Current Medications Acetaminophen (Tylenol 325mg Tab) 650 mg PO Q4H PRN PRN Reason: Pain, Mild (1-3) Alprazolam (Xanax) 0.25 mg PO BID PRN PRN Reason: Anxiety Stop: 09/16/17 22:13 Aspirin (Ecotrin) 81 mg PO DAILY [facility] Last Admin: 09/10/17 09:17 Dose: 81 mg Atorvastatin Calcium (Lipitor) 80 mg PO DIN [facility] Docusate Sodium (Colace) 100 mg PO BID [facility] Last Admin: 09/10/17 09:17 Dose: 100 mg Metoprolol Tartrate (Lopressor) 25 mg PO Q12H [facility] Last Admin: 09/10/17 09:17 Dose: 25 mg Morphine Sulfate (Morphine) 2 mg IVP Q4H PRN PRN Reason: Pain, moderate (4-7) Last Admin: 09/10/17 03:13 Dose: 2 mg Ondansetron HCl (Zofran Inj) 4 mg IV ONCE PRN PRN Reason: Nausea/Vomiting Pantoprazole Sodium (Protonix Ec Tab) 40 mg PO 0600 [facility] Last Admin: 09/10/17 06:39 Dose: 40 mg Ticagrelor (Brilinta) 90 mg PO BID [facility] Last Admin: 09/10/17 09:18 Dose: 90 mg Zolpidem Tartrate (Ambien) 5 mg PO HS PRN PRN Reason: Insomnia Last Admin: 09/09/17 23:50 Dose: 5 mg - Labs Labs: 09/10/17 05:30 09/10/17 05:30 PT 10.7 SECONDS (9.4-12.5) 09/09/17 21:08 INR 0.94 (0.93-1.08) 09/09/17 21:08 APTT 147.9 Seconds (25.1-36.5) H* 09/09/17 21:08 - Constitutional Appears: Well, Non-toxic - Head Exam Head Exam: ATRAUMATIC, NORMOCEPHALIC - Eye Exam Eye Exam: EOMI, Normal appearance - ENT Exam ENT Exam: Mucous Membranes Moist - Neck Exam Neck Exam: Normal Inspection - Respiratory Exam Respiratory Exam: Clear to Ausculation Bilateral, NORMAL BREATHING PATTERN. absent: Accessory Muscle Use - Cardiovascular Exam Cardiovascular Exam: RRR, +S1, +S2 - GI/Abdominal Exam GI & Abdominal Exam: Soft, Normal Bowel Sounds - Extremities Exam Extremities Exam: Normal Inspection. absent: Calf Tenderness - Neurological Exam Neurological Exam: Alert, Awake, Oriented x3 - Psychiatric Exam Psychiatric exam: Normal Affect, Normal Mood - Skin Skin Exam: Dry, Intact, Normal Color, Warm Assessment and Plan - Assessment and Plan (Free Text) Assessment: 51 year old male with a past medical history of hypertension and tobacco use disorder who presented to [facility] in [place] with 1 hour of acute onset chest pain and was found to have ST elevations in leads II, III and avF. Patient was given loading dose of Ticagrelor, Aspirin 325 and a 5000 unit bolus of heparin and transferred for [facility] for STEMI. He underwent a cardiac catherization in which PTCA of the RCA was performed with deployment of a ALEJANDRO therein. The patient was kept overnight in the ICU and started on Brillinta, Metoprolol, Aspirin, Atorvastatin. Echocardiogram was performed, interpretation pending. Plan: 1) STEMI involving RCA - Aspirin 81 mg - Atorvastatin 80 mg HS - Metoprolol Tartarate 25 mg BID - Ticagrelor 90 mg BID - Morphine 2 mg q4h PRN for pain 2) Smoking cessation - Upon discharge patient to receive 21 mg TD nicotine patch - Smoking cessation advised 3) Anxiety disorder, unspecified - Alprazolam 0.25 mg BID 4) Constipation - Colace 100 mg BID 5) GI/DVT prophylaxis - Protonix 40 mg PO daily - SCD Case reviewed and discussed with attending physician, Dr. Lala <Andrei Lala - Last Filed: 09/10/17 16:23> Objective - Vital Signs/Intake and Output Vital Signs (last 24 hours): Temp Pulse Resp BP Pulse Ox 97.9 F 72 18 130/79 97 09/10/17 15:00 09/10/17 15:00 09/10/17 15:00 09/10/17 15:00 09/10/17 11:00 - Medications Medications: Current Medications Acetaminophen (Tylenol 325mg Tab) 650 mg PO Q4H PRN PRN Reason: Pain, Mild (1-3) Alprazolam (Xanax) 0.25 mg PO BID PRN PRN Reason: Anxiety Stop: 09/16/17 22:13 Aspirin (Ecotrin) 81 mg PO DAILY [facility] Last Admin: 09/10/17 09:17 Dose: 81 mg Atorvastatin Calcium (Lipitor) 80 mg PO DIN [facility] Docusate Sodium (Colace) 100 mg PO BID [facility] Last Admin: 09/10/17 09:17 Dose: 100 mg Metoprolol Tartrate (Lopressor) 25 mg PO Q12H [facility] Last Admin: 09/10/17 09:17 Dose: 25 mg Morphine Sulfate (Morphine) 2 mg IVP Q4H PRN PRN Reason: Pain, moderate (4-7) Last Admin: 09/10/17 03:13 Dose: 2 mg Ondansetron HCl (Zofran Inj) 4 mg IV ONCE PRN PRN Reason: Nausea/Vomiting Pantoprazole Sodium (Protonix Ec Tab) 40 mg PO 0600 [facility] Last Admin: 09/10/17 06:39 Dose: 40 mg Ticagrelor (Brilinta) 90 mg PO BID [facility] Last Admin: 09/10/17 09:18 Dose: 90 mg Zolpidem Tartrate (Ambien) 5 mg PO HS PRN PRN Reason: Insomnia Last Admin: 09/09/17 23:50 Dose: 5 mg - Labs Labs: 09/10/17 05:30 09/10/17 05:30 PT 10.7 SECONDS (9.4-12.5) 09/09/17 21:08 INR 0.94 (0.93-1.08) 09/09/17 21:08 APTT 147.9 Seconds (25.1-36.5) H* 09/09/17 21:08 Attending/Attestation - Attestation I have personally seen and examined this patient.: Yes I have fully participated in the care of the patient.: Yes I have reviewed all pertinent clinical information, including history, physical exam and plan: Yes Notes (Text): 09/10/17 16:21 51 year old male with past medical history of hypertension and tobacco use who presented with complaint of chest pain. He was found to have STEMI and underwent cardiac cath with ALEJANDRO of RCA. He is on aspirin, brilinta, statin, and metoprolol. Cardiology is following the patient. Plan is for echocardiogram today. May get downgraded to telemetry unit. He was counselled on smoking cessation. Andrei Lala MD Hospitalist.
[2017-09-10 23:55] LABS: PH,URINE 5.5 (4.7-8.0); URINE APPEARANCE CLEAR (CLEAR); URINE BILIRUBIN NEGATIVE (NEGATIVE); URINE BLOOD NEGATIVE (NEGATIVE); URINE COLOR YELLOW (YELLOW); URINE GLUCOSE (UA) NEGATIVE (NEGATIVE); URINE LEUKOCYTE ESTERASE TRACE Leu/uL (NEGATIVE); URINE PROTEIN NEGATIVE mg/dL (<30 mg/dL); URINE UROBILINOGEN 0.2 E.U./dL (<1 E.U./dL)
[2017-09-11 00:07] LABS: URINE EPITHELIAL CELLS 0 - 2 /hpf (0-5); URINE RBC 0 - 2 /hpf (0-2)
[2017-09-11] MEDS: Pantoprazole 40 mg EC Tab PO SCH (05:36)
[2017-09-11 05:57] VITALS: O2SAT 98
[2017-09-11 07:12] LABS: BASO # 0.02 K/mm3 (0.0-2.0); BASO % 0.2 % (0.0-3.0); EOS # 0.2 (0.0-0.7); EOS % 2.1 % (1.5-5.0); GRAN # 5.29 (1.4-6.5); GRAN % 61.9 % (50.0-68.0); HEMOGLOBIN 15.1 g/dL (14.0-18.0); LYMPH # 1.6 (1.2-3.4); LYMPH % 19.2 % (22.0-35.0); MEAN CELL VOLUME 91.3 fl (80.0-105.0); MEAN CORPUSCULAR HEMOGLOBIN 31.4 pg (25.0-35.0); MEAN CORPUSCULAR HGB CONC 34.4 g/dl (31.0-37.0); MEAN PLATELET VOLUME 9.7 fl (7.0-11.0); MONO # 1.4 (0.1-0.6); MONO % 16.6 % (1.0-6.0); RBC 4.81 10^6/uL (3.5-6.1); RED CELL DISTRIBUTION WIDTH 14.2 % (11.5-14.5); WHITE BLOOD COUNT 8.6 10^3/ul (4.5-11.0)
[2017-09-11 07:47] LABS: ALB/GLOB RATIO 1.5 (1.1-1.8); ALBUMIN 3.8 g/dL (3.0-4.8); ALT/SGPT 47 U/L (7-56); AST/SGOT 52 U/L (17-59); BLOOD UREA NITROGEN 11 mg/dL (7-21); CALCIUM 8.9 mg/dL (8.4-10.5); GFR AFRICAN-AMERICAN > 60; GFR NON-AFRICAN AMERICAN > 60; TROPONIN I 3.08 ng/mL
--- NOTE | 2017-09-11 07:57 | CP.PCM.PN ---
Subjective - Date & Time of Evaluation Date of Evaluation: 09/11/17 Time of Evaluation: 07:00 - Subjective Subjective: Stable on 2R. No chest pain or SOB. He feels well. V/S noted RSR. PE: Lungs: clear Cor.: S1S2 Abd.: soft Ext.: no edema Neuro.: alert Labs: CBC noted. CMP pending. Trops noted. ECG 09/10: RSR, Ev. IMI Objective - Vital Signs/Intake and Output Vital Signs (last 24 hours): Temp Pulse Resp BP Pulse Ox 98.8 F 70 18 123/66 98 09/11/17 05:56 09/11/17 05:56 09/11/17 05:56 09/11/17 05:56 09/11/17 05:56 Intake and Output: 09/11/17 09/11/17 06:59 18:59 Intake Total 480 Output Total 5 Balance 475 - Medications Medications: Current Medications Acetaminophen (Tylenol 325mg Tab) 650 mg PO Q4H PRN PRN Reason: Pain, Mild (1-3) Alprazolam (Xanax) 0.25 mg PO BID PRN PRN Reason: Anxiety Stop: 09/16/17 22:13 Aspirin (Ecotrin) 81 mg PO DAILY [facility] Last Admin: 09/10/17 09:17 Dose: 81 mg Atorvastatin Calcium (Lipitor) 80 mg PO DIN [facility] Last Admin: 09/10/17 17:50 Dose: 80 mg Docusate Sodium (Colace) 100 mg PO BID [facility] Last Admin: 09/10/17 17:50 Dose: 100 mg Metoprolol Succinate (Toprol Xl) 50 mg PO BRK [facility] Ondansetron HCl (Zofran Inj) 4 mg IV ONCE PRN PRN Reason: Nausea/Vomiting Ticagrelor (Brilinta) 90 mg PO BID [facility] Last Admin: 09/10/17 17:50 Dose: 90 mg Zolpidem Tartrate (Ambien) 5 mg PO HS PRN PRN Reason: Insomnia Last Admin: 09/10/17 23:30 Dose: 5 mg - Labs Labs: 09/11/17 06:45 09/11/17 06:45 PT 10.7 SECONDS (9.4-12.5) 09/09/17 21:08 INR 0.94 (0.93-1.08) 09/09/17 21:08 APTT 147.9 Seconds (25.1-36.5) H* 09/09/17 21:08 Assessment and Plan - Assessment and Plan (Free Text) Assessment: Acute IMI, S/P PCI RCA ALEJANDRO X 1 HBP Smoker Plan: D/C later today: ASA 81/day, Brilinta 90 BID, Metoprolol ER 50/day, Atorvastatin 40/day, Benicar same dose daily. OV- 1 week Cardiac Rehab referral Low sat. fat diet. No smoking. He will use karely. gum or call if he wants a patch.
[2017-09-11] MEDS ORDERED: Metoprolol Succinate 50 mg XL Tab PO SCH (08:00)
--- NOTE | 2017-09-11 08:47 | CARD ---
APPROVED REPORT EKG Measurement Heart [id number] <Conclusion> Normal sinus rhythm Inferior infarct, age undetermined Abnormal ECG
--- NOTE | 2017-09-11 09:29 | CARD ---
APPROVED REPORT EXAM: Two-dimensional and M-mode echocardiogram with Doppler and color Doppler. Other Information Quality : GoodRhythm : INDICATION ACUTE IMI, S/P PCI 2D DIMENSIONS Left Atrium (2D)4.0 (1.6-4.0cm)IVSd1.0 (0.7-1.1cm) LVDd5.4 (3.9-5.9cm)PWd1.0 (0.7-1.1cm) LVDs3.8 (2.5-4.0cm)FS (%) 29.5 % LVEF (%)56.0 (>50%) M-Mode DIMENSIONS Aortic Root3.70 (2.2-3.7cm)Aortic Cusp Exc.2.30 (1.5-2.0cm) Aortic Valve AoV Peak Jtxuvsjy490.0cm/s Mitral Valve MV E Olpzrzas11.5cm/sMV A Czagovvi80.6cm/sE/A ratio1.1 TDI Lateral E' Peak V10.00cm/sMedial E' Peak V6.53cm/sE/Lateral E'7.4 E/Medial E'11.4 Pulmonary Valve PV Peak Urfremja52.3cm/sPV Peak Grad.1mmHg Tricuspid Valve TR Peak Nbmzmcbl889vf/sRAP [id number] Peak Gr.15mmHg [id number] LEFT VENTRICLE The left ventricle is normal size. There is normal left ventricular wall thickness. The left ventricular function is normal. The left ventricular ejection fraction is within the normal range. There is normal LV segmental wall motion. RIGHT VENTRICLE The right ventricle is normal size. ATRIA The left atrium size is normal. The right atrium size is normal. The interatrial septum is intact with no evidence for an atrial septal defect. AORTIC VALVE The aortic valve is normal in structure. MITRAL VALVE The mitral valve is normal in structure. Mitral regurgitation is trace. TRICUSPID VALVE The tricuspid valve is normal in structure. There is trace tricuspid regurgitation. PULMONIC VALVE The pulmonary valve is normal in structure. The pulmonic valve is not well visualized. There is trace pulmonic valvular regurgitation. GREAT VESSELS The aortic root is normal in size. PERICARDIAL EFFUSION There is no pericardial effusion. <Conclusion> The left ventricle is normal size. There is normal left ventricular wall thickness. The left ventricular function is normal.
[2017-09-11 11:51] VITALS: BP 102/63; PULSE 66; TEMP 98.2
--- NOTE | 2017-09-11 12:08 | CP.PCM.DIS ---
<Quyen Hernandez - Last Filed: 09/11/17 14:00> Provider - Provider Date of Admission: 09/09/17 22:12 Attending physician: Andrei Lala MD Primary care physician: Olivier Goss MD Consults: Dr. Powell Time Spent in preparation of Discharge (in minutes): 35 Diagnosis - Discharge Diagnosis (1) ST elevation (STEMI) myocardial infarction involving right coronary artery Status: Acute Priority: High Hospital Course - Lab Results Lab Results: Most Recent Lab Values WBC 8.6 10^3/ul (4.5-11.0) 09/11/17 06:45 RBC 4.81 10^6/uL (3.5-6.1) 09/11/17 06:45 Hgb 15.1 g/dL (14.0-18.0) 09/11/17 06:45 Hct 43.9 % (42.0-52.0) 09/11/17 06:45 MCV 91.3 fl (80.0-105.0) 09/11/17 06:45 MCH 31.4 pg (25.0-35.0) 09/11/17 06:45 MCHC 34.4 g/dl (31.0-37.0) 09/11/17 06:45 RDW 14.2 % (11.5-14.5) 09/11/17 06:45 Plt Count 187 10^3/uL (120.0-450.0) 09/11/17 06:45 MPV 9.7 fl (7.0-11.0) 09/11/17 06:45 Gran % 61.9 % (50.0-68.0) 09/11/17 06:45 Lymph % (Auto) 19.2 % (22.0-35.0) L 09/11/17 06:45 [place] % (Auto) 16.6 % (1.0-6.0) H 09/11/17 06:45 Eos % (Auto) 2.1 % (1.5-5.0) 09/11/17 06:45 Baso % (Auto) 0.2 % (0.0-3.0) 09/11/17 06:45 Gran # 5.29 (1.4-6.5) 09/11/17 06:45 Lymph # (Auto) 1.6 (1.2-3.4) 09/11/17 06:45 [place] # (Auto) 1.4 (0.1-0.6) H 09/11/17 06:45 Eos # (Auto) 0.2 (0.0-0.7) 09/11/17 06:45 Baso # (Auto) 0.02 K/mm3 (0.0-2.0) 09/11/17 06:45 PT 10.7 SECONDS (9.4-12.5) 09/09/17 21:08 INR 0.94 (0.93-1.08) 09/09/17 21:08 APTT 147.9 Seconds (25.1-36.5) H* 09/09/17 21:08 Sodium 141 mmol/L (132-148) 09/11/17 06:45 Potassium 4.1 mmol/L (3.6-5.0) 09/11/17 06:45 Chloride 105 mmol/L (98-107) 09/11/17 06:45 Carbon Dioxide 27 mmol/L (21-33) 09/11/17 06:45 Anion Gap 13 (10-20) 09/11/17 06:45 BUN 11 mg/dL (7-21) 09/11/17 06:45 Creatinine 0.9 mg/dl (0.8-1.5) 09/11/17 06:45 Est GFR ( Amer) > 60 09/11/17 06:45 Est GFR (Non-Af Amer) > 60 09/11/17 06:45 Random Glucose 95 mg/dL (70-110) 09/11/17 06:45 Hemoglobin A1c 5.1 % (4.2-6.5) 09/10/17 05:30 Calcium 8.9 mg/dL (8.4-10.5) 09/11/17 06:45 Phosphorus 3.3 mg/dL (2.5-4.5) 09/11/17 06:45 Magnesium 2.1 mg/dL (1.7-2.2) 09/11/17 06:45 Total Bilirubin 0.9 mg/dL (0.2-1.3) 09/11/17 06:45 AST 52 U/L (17-59) 09/11/17 06:45 ALT 47 U/L (7-56) 09/11/17 06:45 Alkaline Phosphatase 55 U/L (38-126) 09/11/17 06:45 Lactate Dehydrogenase 450 U/L (333-699) 09/11/17 06:45 Total Creatine Kinase 196 U/L (35-230) 09/11/17 06:45 CK-MB (CK-2) 45.8 ng/mL (0.0-3.6) H 09/10/17 05:30 CK-MB (CK-2) % 9.7 % (2.5-3.0) H 09/10/17 05:30 Troponin I 3.08 ng/mL H* D 09/11/17 06:45 Total Protein 6.4 g/dL (5.8-8.3) 09/11/17 06:45 Albumin 3.8 g/dL (3.0-4.8) 09/11/17 06:45 Globulin 2.6 gm/dL 09/11/17 06:45 Albumin/Globulin Ratio 1.5 (1.1-1.8) 09/11/17 06:45 Triglycerides 176 mg/dL (35-160) H 09/10/17 05:30 Cholesterol 185 mg/dL (130-200) 09/10/17 05:30 LDL Cholesterol Direct 119 mg/dL (0-129) 09/10/17 05:30 HDL Cholesterol 38 mg/dL (29-60) 09/10/17 05:30 Urine Color Yellow (YELLOW) 09/10/17 23:37 Urine Appearance Clear (CLEAR) 09/10/17 23:37 Urine pH 5.5 (4.7-8.0) 09/10/17 23:37 Ur Specific [place] 1.010 (1.005-1.035) 09/10/17 23:37 Urine Protein Negative mg/dL (<30 mg/dL) 09/10/17 23:37 Urine Glucose (UA) Negative mg/dL (NEGATIVE) 09/10/17 23:37 Urine Ketones Negative mg/dL (NEGATIVE) 09/10/17 23:37 Urine Blood Negative (NEGATIVE) 09/10/17 23:37 Urine Nitrate Negative (NEGATIVE) 09/10/17 23:37 Urine Bilirubin Negative (NEGATIVE) 09/10/17 23:37 Urine Urobilinogen 0.2 E.U./dL (<1 E.U./dL) 09/10/17 23:37 Ur Leukocyte Esterase Trace Gabriel/uL (NEGATIVE) H 09/10/17 23:37 Urine RBC 0 - 2 /hpf (0-2) 09/10/17 23:37 Urine WBC 1 - 3 /hpf (0-6) 09/10/17 23:37 Ur Epithelial Cells 0 - 2 /hpf (0-5) 09/10/17 23:37 Blood Type O POSITIVE 09/09/17 22:27 Blood Type Confirm O POSITIVE 09/09/17 23:06 Antibody Screen Negative 09/09/17 22:27 BBK History Checked No verified bt 09/09/17 22:27 - Hospital Course Hospital Course: 51 year old male with a past medical history of hypertension, anxiety, and tobacco use disorder who presented to [facility] in [place] with 1 hour of acute onset chest pain and was found to have ST elevations in leads II, III and avF. Patient was given loading dose of Ticagrelor, Aspirin 325 and a 5000 unit bolus of heparin and transferred for [facility] for STEMI. He underwent a cardiac catherization in which PTCA of the RCA was performed with deployment of a ALEJANDRO therein. The patient was kept overnight in the ICU and started on Brillinta, Metoprolol, Aspirin, Atorvastatin.The Echocardiogram performed was normal. Patient was discharged with below written medications, and informed to continue his ARB at the same dosage. He was also referred for cardiac rehabilitation. He will be following up with both Dr. Powell, regional transportation manager, and with his PMD, Dr. Olivier Goss, in the coming week. Patient was counselled on smoking cessation and educated about methods of successfully abstaining from tobacco use. - Date & Time of H&P Date of H&P: 09/11/17 Time of H&P: 12:08 Discharge Exam - Head Exam Head Exam: ATRAUMATIC, NORMOCEPHALIC - Eye Exam Eye Exam: EOMI, Normal appearance - ENT Exam ENT Exam: Mucous Membranes Moist - Neck Exam Neck exam: Normal Inspection - Respiratory Exam Respiratory Exam: Clear to PA & Lateral, NORMAL BREATHING PATTERN. absent: Accessory Muscle Use - Cardiovascular Exam Cardiovascular Exam: RRR, +S1, +S2 - Extremities Exam Extremities exam: normal inspection - Back Exam Back exam: NORMAL INSPECTION. absent: CVA tenderness (L), CVA tenderness (R) - Neurological Exam Neurological exam: Alert, CN II-XII Intact, Oriented x3 - Psychiatric Exam Psychiatric exam: Normal Affect, Normal Mood - Skin Skin Exam: Dry, Intact, Normal Color, Warm Discharge Plan - Discharge Medications Prescriptions: Aspirin [Ecotrin] 81 mg PO DAILY #90 tabec Atorvastatin [Lipitor] 40 mg PO HS #30 tab Metoprolol Succinate XL [Toprol XL] 50 mg PO BRK #30 tab Ticagrelor [Brilinta] 90 mg PO BID #60 tab - Follow Up Plan Condition: GOOD Disposition: HOME/ ROUTINE Instructions: Coronary Heart Disease, Heart Healthy Diet, Coronary Angioplasty (DC), Quitting Smoking, Coronary Heart Disease (DC) Additional Instructions: 1) Follow up with Dr Powell and your primary physician within 1 week. 2) Dr Blood called in your prescriptions to [facility]. Referrals: Olivier Goss MD [Primary Care Provider] - <Andrei Lala - Last Filed: 09/11/17 14:23> Provider - Provider Date of Admission: 09/09/17 22:12 Attending physician: Andrei Lala MD Primary care physician: Olivier Goss MD [facility] Hospital Course - Lab Results Lab Results: Most Recent Lab Values WBC 8.6 10^3/ul (4.5-11.0) 09/11/17 06:45 RBC 4.81 10^6/uL (3.5-6.1) 09/11/17 06:45 Hgb 15.1 g/dL (14.0-18.0) 09/11/17 06:45 Hct 43.9 % (42.0-52.0) 09/11/17 06:45 MCV 91.3 fl (80.0-105.0) 09/11/17 06:45 MCH 31.4 pg (25.0-35.0) 09/11/17 06:45 MCHC 34.4 g/dl (31.0-37.0) 09/11/17 06:45 RDW 14.2 % (11.5-14.5) 09/11/17 06:45 Plt Count 187 10^3/uL (120.0-450.0) 09/11/17 06:45 MPV 9.7 fl (7.0-11.0) 09/11/17 06:45 Gran % 61.9 % (50.0-68.0) 09/11/17 06:45 Lymph % (Auto) 19.2 % (22.0-35.0) L 09/11/17 06:45 [place] % (Auto) 16.6 % (1.0-6.0) H 09/11/17 06:45 Eos % (Auto) 2.1 % (1.5-5.0) 09/11/17 06:45 Baso % (Auto) 0.2 % (0.0-3.0) 09/11/17 06:45 Gran # 5.29 (1.4-6.5) 09/11/17 06:45 Lymph # (Auto) 1.6 (1.2-3.4) 09/11/17 06:45 [place] # (Auto) 1.4 (0.1-0.6) H 09/11/17 06:45 Eos # (Auto) 0.2 (0.0-0.7) 09/11/17 06:45 Baso # (Auto) 0.02 K/mm3 (0.0-2.0) 09/11/17 06:45 PT 10.7 SECONDS (9.4-12.5) 09/09/17 21:08 INR 0.94 (0.93-1.08) 09/09/17 21:08 APTT 147.9 Seconds (25.1-36.5) H* 09/09/17 21:08 Sodium 141 mmol/L (132-148) 09/11/17 06:45 Potassium 4.1 mmol/L (3.6-5.0) 09/11/17 06:45 Chloride 105 mmol/L (98-107) 09/11/17 06:45 Carbon Dioxide 27 mmol/L (21-33) 09/11/17 06:45 Anion Gap 13 (10-20) 09/11/17 06:45 BUN 11 mg/dL (7-21) 09/11/17 06:45 Creatinine 0.9 mg/dl (0.8-1.5) 09/11/17 06:45 Est GFR ( Amer) > 60 09/11/17 06:45 Est GFR (Non-Af Amer) > 60 09/11/17 06:45 Random Glucose 95 mg/dL (70-110) 09/11/17 06:45 Hemoglobin A1c 5.1 % (4.2-6.5) 09/10/17 05:30 Calcium 8.9 mg/dL (8.4-10.5) 09/11/17 06:45 Phosphorus 3.3 mg/dL (2.5-4.5) 09/11/17 06:45 Magnesium 2.1 mg/dL (1.7-2.2) 09/11/17 06:45 Total Bilirubin 0.9 mg/dL (0.2-1.3) 09/11/17 06:45 AST 52 U/L (17-59) 09/11/17 06:45 ALT 47 U/L (7-56) 09/11/17 06:45 Alkaline Phosphatase 55 U/L (38-126) 09/11/17 06:45 Lactate Dehydrogenase 450 U/L (333-699) 09/11/17 06:45 Total Creatine Kinase 196 U/L (35-230) 09/11/17 06:45 CK-MB (CK-2) 45.8 ng/mL (0.0-3.6) H 09/10/17 05:30 CK-MB (CK-2) % 9.7 % (2.5-3.0) H 09/10/17 05:30 Troponin I 3.08 ng/mL H* D 09/11/17 06:45 Total Protein 6.4 g/dL (5.8-8.3) 09/11/17 06:45 Albumin 3.8 g/dL (3.0-4.8) 09/11/17 06:45 Globulin 2.6 gm/dL 09/11/17 06:45 Albumin/Globulin Ratio 1.5 (1.1-1.8) 09/11/17 06:45 Triglycerides 176 mg/dL (35-160) H 09/10/17 05:30 Cholesterol 185 mg/dL (130-200) 09/10/17 05:30 LDL Cholesterol Direct 119 mg/dL (0-129) 09/10/17 05:30 HDL Cholesterol 38 mg/dL (29-60) 09/10/17 05:30 Urine Color Yellow (YELLOW) 09/10/17 23:37 Urine Appearance Clear (CLEAR) 09/10/17 23:37 Urine pH 5.5 (4.7-8.0) 09/10/17 23:37 Ur Specific [place] 1.010 (1.005-1.035) 09/10/17 23:37 Urine Protein Negative mg/dL (<30 mg/dL) 09/10/17 23:37 Urine Glucose (UA) Negative mg/dL (NEGATIVE) 09/10/17 23:37 Urine Ketones Negative mg/dL (NEGATIVE) 09/10/17 23:37 Urine Blood Negative (NEGATIVE) 09/10/17 23:37 Urine Nitrate Negative (NEGATIVE) 09/10/17 23:37 Urine Bilirubin Negative (NEGATIVE) 09/10/17 23:37 Urine Urobilinogen 0.2 E.U./dL (<1 E.U./dL) 09/10/17 23:37 Ur Leukocyte Esterase Trace Gabriel/uL (NEGATIVE) H 09/10/17 23:37 Urine RBC 0 - 2 /hpf (0-2) 09/10/17 23:37 Urine WBC 1 - 3 /hpf (0-6) 09/10/17 23:37 Ur Epithelial Cells 0 - 2 /hpf (0-5) 09/10/17 23:37 Blood Type O POSITIVE 09/09/17 22:27 Blood Type Confirm O POSITIVE 09/09/17 23:06 Antibody Screen Negative 09/09/17 22:27 BBK History Checked No verified bt 09/09/17 22:27 Attending/Attestation - Attestation I have personally seen and examined this patient.: Yes I have fully participated in the care of the patient.: Yes I have reviewed all pertinent clinical information, including history, physical exam and plan: Yes Notes (Text): 09/11/17 14:21 51 year old male with past medical history of hypertension and tobacco use who presented with complaint of chest pain. He was found to have STEMI and underwent cardiac cath with ALEJANDRO of RCA. He is on aspirin, brilinta, statin, and metoprolol. His symptoms improved. His echocardiogram was reviewed. Patient will be discharged home to follow up with his pmd. Follow up with cardiology. Counselled on smoking cessation. Andrei Lala MD Hospitalist.
[2017-09-11 12:16] VITALS: RESP 98
== END 2017-09-11 13:15 | disposition home or self-care (01) | DRG 247 ==
LOC: ED 21:02 → CATH 21:15 → ICU 22:12 → 2RSO 09-10 14:21
PROVIDERS: ADMIT Internal Medicine; ATTEND Internal Medicine
PROC: 027034Z Dilation of Coronary Artery, One Artery with Drug-eluting Intraluminal Device, Percutaneous Approach (ICD-10-PCS; principal; 2017-09-09)
PROC: 4A023N7 Measurement of Cardiac Sampling and Pressure, Left Heart, Percutaneous Approach (ICD-10-PCS; 2017-09-09)
PROC: B211YZZ Fluoroscopy of Multiple Coronary Arteries using Other Contrast (ICD-10-PCS; 2017-09-09)
PROC: B215YZZ Fluoroscopy of Left Heart using Other Contrast (ICD-10-PCS; 2017-09-09)
DX: I21.19 ST elevation (STEMI) myocardial infarction involving other coronary artery of inferior wall (principal); I25.10 Atherosclerotic heart disease of native coronary artery without angina pectoris; I10 Essential (primary) hypertension; E78.5 Hyperlipidemia, unspecified; F41.9 Anxiety disorder, unspecified; K59.00 Constipation, unspecified; F17.200 Nicotine dependence, unspecified, uncomplicated

== ENCOUNTER 2017-10-03 19:07 | Emergency (ER) | payer SELFPAY ==
[2017-10-03 19:07] VITALS: BMI 36.1
--- NOTE | 2017-10-03 19:28 | ED PDOC ---
Arrival/HPI - General Chief Complaint: Dizziness/Lightheaded Time Seen by Provider: 10/03/17 19:13 Historian: Patient - History of Present Illness Narrative History of Present Illness (Text): Patient reports that about 45 minutes prior to arrival he was sitting in his car and felt an acute onset of lightheadedness. He got out of the car and was unable to catch his breath, then later tried to lay down and felt his heart fluttering. Denied any actual chest pain. No syncope. He states that he has had similar episodes in the past due to anxiety, but he was concerned because he had an inferior STEMI last month, was a code heart, cath done by Dr. Smallwood. Currently he reports that his symptoms have almost completely resolved, still feels somewhat anxious, but has no dizziness or chest pain. He took a full strength ASA earlier today. Past Medical History - Provider Review Nursing Documentation Reviewed: Yes - Travel History Have you recently traveled outside [place] w/in the past 3 mons?: No - Infectious Disease Hx of Infectious Diseases: None - Tetanus Immunization Tetanus Immunization: Unknown - Cardiac Hx VA: Yes Hx Hypertension: Yes - Pulmonary Hx Respiratory Disorders: No - Neurological Hx Neurological Disorder: No - HEENT Hx HEENT Disorder: No - Renal Hx Renal Disorder: No - Endocrine/Metabolic Hx Endocrine Disorders: No - Hematological/Oncological Hx Blood Disorders: No - Integumentary Hx Dermatological Disorder: No - Musculoskeletal/Rheumatological Hx Gout: Yes - Gastrointestinal Hx Gastrointestinal Disorders: No - Genitourinary/Gynecological Hx Genitourinary Disorders: No - Psychiatric Hx Anxiety: Yes Hx Depression: Yes Hx Emotional Abuse: No Hx Physical Abuse: No Hx Substance Use: No - Past Surgical History Past Surgical History: No Previous - Surgical History Hx Coronary Stent: Yes (x1 08/2017) - Anesthesia Hx Anesthesia: Yes Hx Anesthesia Reactions: No Hx Malignant Hyperthermia: No - Suicidal Assessment Feels Threatened In Home Enviroment: No Family/Social History - Physician Review Nursing Documentation Reviewed: Yes Family/Social History: Unknown Family HX Smoking Status: Former Smoker Hx Alcohol Use: Yes Frequency of alcohol use: Socially Hx Substance Use: No Hx Substance Use Treatment: No Allergies/Home Meds Allergies/Adverse Reactions: Allergies Penicillins Allergy (Verified 10/03/17 19:20) RASH Home Medications: Home Meds Medication Instructions Recorded Confirmed Olmesartan Medoxomil [Benicar] 1 tab PO DAILY 09/09/17 10/03/17 Aspirin 325 mg PO DAILY 10/03/17 10/03/17 Clopidogrel [Plavix] 75 mg PO DAILY 10/03/17 10/03/17 Review of Systems - Physician Review All systems were reviewed & negative as marked: Yes - Review of Systems Constitutional: Normal Respiratory: SOB ("couldn't catch my breath") Cardiovascular: Palpitations Gastrointestinal: Normal Musculoskeletal: Normal Skin: Normal Neurological: Dizziness Psychiatric: Normal Physical Exam Vital Signs Reviewed: Yes Vital Signs Temp Pulse Resp BP Pulse Ox 10/04/17 00:52 98 F 65 18 120/68 98 10/03/17 22:12 98 F 67 18 124/70 100 10/03/17 20:32 98 F 75 19 121/78 95 10/03/17 19:21 97.8 F 79 18 155/81 H 95 10/03/17 19:13 89 19 95 Temperature: Afebrile Blood Pressure: Normal Pulse: Regular Respiratory Rate: Normal Appearance: Positive for: Well-Appearing, Non-Toxic, Comfortable Pain Distress: None Mental Status: Positive for: Alert and Oriented X 3 - Systems Exam Head: Present: Atraumatic, Normocephalic Pupils: Present: PERRL Extroacular Muscles: Present: EOMI Conjunctiva: Present: Normal Mouth: Present: Moist Mucous Membranes Respiratory/Chest: Present: Clear to Auscultation Cardiovascular: Present: Regular Rate and Rhythm Abdomen: No: Tenderness, Distention Upper Extremity: Present: Normal Inspection Lower Extremity: Present: Normal Inspection Neurological: Present: GCS=15 Skin: Present: Warm, Dry Psychiatric: Present: Alert, Oriented x 3 Medical Decision Making ED Course and Treatment: 10/04/17 00:45 Chest X-ray results show no active disease. Patient has been reevaluated and states he experiences no chest pain. Had 2 negative troponins at 0 and at 4 hours, patient agrees to be discharged home. - Lab Interpretations Lab Results: 10/03/17 19:39 10/03/17 19:39 Lab Results 10/03/17 23:18: Troponin I < 0.01 10/03/17 19:39: Sodium 143, Potassium 3.8, Chloride 106, Carbon Dioxide 26, Anion Gap 16, BUN 18, Creatinine 1.2, Est GFR ( Amer) > 60, Est GFR (Non- Af Amer) > 60, Random Glucose 101, Calcium 9.0, Magnesium 1.9, Total Bilirubin 0.5, AST 35, ALT 49, Alkaline Phosphatase 67, Lactate Dehydrogenase 419, Total Creatine Kinase 145, Troponin I < 0.01 D, Total Protein 7.1, Albumin 4.4, Globulin 2.6, Albumin/Globulin Ratio 1.7 10/03/17 19:39: WBC 6.6 D, RBC 4.68, Hgb 14.9, Hct 42.3, MCV 90.4, MCH 31.8, MCHC 35.2, RDW 13.4, Plt Count 220, MPV 9.4, Gran % 49.6 L, Lymph % (Auto) 33.6 , [place] % (Auto) 12.2 H, Eos % (Auto) 4.3, Baso % (Auto) 0.3, Gran # 3.27, Lymph # (Auto) 2.2, [place] # (Auto) 0.8 H, Eos # (Auto) 0.3, Baso # (Auto) 0.02 - RAD Interpretation Radiology Orders: 10/03/17 19:27 CHEST PORTABLE [RAD] Stat - EKG Interpretation EKG Interpretation (Text): 19:13- NSR, rate 98bpm, normal axis, QTc 469, inverted Q waves in leads III and aVF, no acute ST/T changes Interpreted by ED Physician: Yes Type: 12 lead EKG - Medication Orders Current Medication Orders: Discontinued Medications Alprazolam (Xanax) 0.25 mg PO STAT STA PRN Reason: Protocol Stop: 10/03/17 20:32 Last Admin: 10/03/17 20:42 Dose: 0.25 mg Disposition/Present on Arrival - Present on Arrival Any Indicators Present on Arrival: No History of DVT/PE: No History of Uncontrolled Diabetes: No Urinary Catheter: No History of Decub. Ulcer: No History Surgical Site Infection Following: None - Disposition Have Diagnosis and Disposition been Completed?: Yes Diagnosis: Chest pain Disposition: HOME/ ROUTINE Disposition Time: 00:52 Condition: GOOD Discharge Instructions (ExitCare): Chest Pain (ED) Additional Instructions: DESI VALLES, thank you for letting us take care of you today. Your provider was Jannet Jefferson MD and you were treated for CHEST PAIN. The emergency medical care you received today was directed at your acute symptoms. If you were prescribed any medication, please fill it and take as directed. It may take several days for your symptoms to resolve. Return to the Emergency Department if your symptoms worsen, do not improve, or if you have any other problems. Please contact your doctor or call one of the physicians/clinics you have been referred to that are listed on the Patient Visit Information form that is included in your discharge packet. Bring any paperwork you were given at discharge with you along with any medications you are taking to your follow up visit. Our treatment cannot replace ongoing medical care by a primary care provider outside of the emergency department. Thank you for allowing the [facility] team to be part of your care today. If you had an X-Ray or CT scan: A Radiologist will review the ED reading if any change in treatment is needed we will contact you. If you had a blood, urine, or wound culture: It will take several days for the results, if any change in treatment is needed we will contact you. If you had an STI test: It will take 48 hours for the results. Please call after 1 week if you have not heard back. Referrals: Olivier Goss MD [Primary Care Provider] - Follow up with primary Forms: [employer] (Yi)
[2017-10-03 19:53] LABS: BASO # 0.02 K/mm3 (0.0-2.0); BASO % 0.3 % (0.0-3.0); EOS # 0.3 (0.0-0.7); EOS % 4.3 % (1.5-5.0); GRAN # 3.27 (1.4-6.5); GRAN % 49.6 % (50.0-68.0); HEMOGLOBIN 14.9 g/dL (14.0-18.0); LYMPH # 2.2 (1.2-3.4); LYMPH % 33.6 % (22.0-35.0); MEAN CELL VOLUME 90.4 fl (80.0-105.0); MEAN CORPUSCULAR HEMOGLOBIN 31.8 pg (25.0-35.0); MEAN CORPUSCULAR HGB CONC 35.2 g/dl (31.0-37.0); MEAN PLATELET VOLUME 9.4 fl (7.0-11.0); MONO # 0.8 (0.1-0.6); MONO % 12.2 % (1.0-6.0); RBC 4.68 10^6/uL (3.5-6.1); RED CELL DISTRIBUTION WIDTH 13.4 % (11.5-14.5); WHITE BLOOD COUNT 6.6 10^3/ul (4.5-11.0)
[2017-10-03 20:19] LABS: TROPONIN I < 0.01 ng/mL
[2017-10-03 20:24] LABS: ALB/GLOB RATIO 1.7 (1.1-1.8); ALBUMIN 4.4 g/dL (3.0-4.8); ALT/SGPT 49 U/L (7-56); AST/SGOT 35 U/L (17-59); BLOOD UREA NITROGEN 18 mg/dL (7-21); GFR AFRICAN-AMERICAN > 60; GFR NON-AFRICAN AMERICAN > 60
[2017-10-03 20:39] VITALS: TEMP 98
[2017-10-03 22:18] VITALS: RESP 18
[2017-10-04 00:53] VITALS: BP 120/68; PULSE 65; O2SAT 98
--- NOTE | 2017-10-04 08:29 | RAD ---
Date of service: 10/03/2017 HISTORY: chest pain COMPARISON: 09/09/2017 FINDINGS: LUNGS: No active pulmonary disease. PLEURA: No significant pleural effusion identified, no pneumothorax apparent. CARDIOVASCULAR: Normal. OSSEOUS STRUCTURES: No significant abnormalities. VISUALIZED UPPER ABDOMEN: Normal. OTHER FINDINGS: None. IMPRESSION: No active disease.
--- NOTE | 2017-10-04 21:04 | CARD ---
APPROVED REPORT Date of service: 10/03/2017 EKG Measurement Heart [id number] [place] [id number] <Conclusion> Poor data quality, interpretation may be adversely affected Normal sinus rhythm Inferior infarct, age undetermined Abnormal ECG
== END 2017-10-04 00:52 | disposition home or self-care (01) ==
LOC: ED 19:07
DX: R07.9 Chest pain, unspecified (principal); I10 Essential (primary) hypertension; Z87.891 Personal history of nicotine dependence

== ENCOUNTER 2018-03-08 19:05 | Observation (INO) | payer SELFPAY ==
[2018-03-08 20:27] LABS: HEMOGLOBIN 14.6 g/dL (14.0-18.0); MEAN CELL VOLUME 87.6 fl (80.0-105.0); MEAN CORPUSCULAR HEMOGLOBIN 30.6 pg (25.0-35.0); MEAN CORPUSCULAR HGB CONC 34.9 g/dl (31.0-37.0); MEAN PLATELET VOLUME 9.4 fl (7.0-11.0); RBC 4.77 10^6/uL (3.5-6.1); RED CELL DISTRIBUTION WIDTH 12.6 % (11.5-14.5); WHITE BLOOD COUNT 6.8 10^3/uL (4.5-11.0)
--- NOTE | 2018-03-08 20:34 | ED PDOC ---
Arrival/HPI - General Chief Complaint: Palpitations Time Seen by Provider: 03/08/18 19:17 Historian: Patient - History of Present Illness Narrative History of Present Illness (Text): 03/08/18 19:27 52 year old male, whose past medical history includes hypertension, mild anxiety, myocardial infraction/recent stemi, who presents to the Emergency department complaining of palpitations/rapid heart rate since yesterday and then again today while sitting at home. Patient also described vague intermittent right-sided chest discomfort. According to patient, he has occasional dyspnea on exertion. Patient denies any nausea, vomiting, diarrhea, back pain, leg pain, anxiety, fevers, cough, or any other complaints. PMD: Olivier Pino Time/Duration: Other (Pt notes symptoms began yesterday and then again today ) Symptom Onset: Sudden Symptom Course: Unchanged Context: Home Past Medical History - Provider Review Nursing Documentation Reviewed: Yes - Infectious Disease Hx of Infectious Diseases: None - Tetanus Immunization Tetanus Immunization: Unknown - Cardiac Hx [place]: Yes Hx Hypertension: Yes - Pulmonary Hx Respiratory Disorders: No - Neurological Hx Neurological Disorder: No - HEENT Hx HEENT Disorder: No - Renal Hx Renal Disorder: No - Endocrine/Metabolic Hx Endocrine Disorders: No - Hematological/Oncological Hx Blood Disorders: No - Integumentary Hx Dermatological Disorder: No - Musculoskeletal/Rheumatological Hx Gout: Yes - Gastrointestinal Hx Gastrointestinal Disorders: No - Genitourinary/Gynecological Hx Genitourinary Disorders: No - Psychiatric Hx Anxiety: Yes Hx Depression: Yes Hx Emotional Abuse: No Hx Physical Abuse: No Hx Substance Use: No - Past Surgical History Past Surgical History: No Previous - Surgical History Hx Coronary Stent: Yes (x1 08/2017) - Anesthesia Hx Anesthesia: Yes Hx Anesthesia Reactions: No Hx Malignant Hyperthermia: No - Suicidal Assessment Feels Threatened In Home Enviroment: No Family/Social History - Physician Review Nursing Documentation Reviewed: Yes Family/Social History: No Known Family HX Smoking Status: Former Smoker Hx Alcohol Use: Yes Hx Substance Use: No Hx Substance Use Treatment: No Allergies/Home Meds Allergies/Adverse Reactions: Allergies Penicillins Allergy (Verified 03/08/18 19:32) RASH Home Medications: Home Meds Medication Instructions Recorded Confirmed RX: Olmesartan Medoxomil [Benicar] 1 tab PO DAILY 09/09/17 03/08/18 Clopidogrel [Plavix] 75 mg PO DAILY 10/03/17 03/08/18 RX: Aspirin 325 mg PO DAILY 10/03/17 03/08/18 Review of Systems - Physician Review All systems were reviewed & negative as marked: Yes - Review of Systems Constitutional: Normal. absent: Fevers Respiratory: Normal. absent: Cough Cardiovascular: Palpitations (pt notes palpitations that began yesterday and experienced them again today), Other (pt notes vague intermittent right-sided chest discomfort). absent: Normal Gastrointestinal: Normal. absent: Diarrhea, Nausea, Vomiting Musculoskeletal: Normal. absent: Back Pain Psychiatric: Normal. absent: Anxiety Physical Exam Vital Signs Reviewed: Yes Vital Signs Temp Pulse Resp BP Pulse Ox 03/08/18 20:13 75 131/88 03/08/18 19:24 98.1 F 105 H 18 131/88 99 Temperature: Afebrile Blood Pressure: Normal Pulse: Tachycardic Appearance: Positive for: Well-Appearing, Non-Toxic Pain Distress: Mild Mental Status: Positive for: Alert and Oriented X 3 - Systems Exam Head: Present: Atraumatic, Normocephalic Pupils: Present: PERRL Extroacular Muscles: Present: EOMI Conjunctiva: Present: Normal Mouth: Present: Moist Mucous Membranes Neck: Present: Normal Range of Motion Respiratory/Chest: Present: Clear to Auscultation, Good Air Exchange. No: Respiratory Distress, Accessory Muscle Use Cardiovascular: Present: Tachycardic Abdomen: No: Tenderness, Distention, Peritoneal Signs Back: Present: Normal Inspection Upper Extremity: Present: Normal Inspection. No: Cyanosis, Edema Lower Extremity: Present: Normal Inspection. No: CALF TENDERNESS, Hannah's Sign Neurological: Present: GCS=15, CN II-XII Intact, Speech Normal Skin: Present: Warm, Dry, Normal Color. No: Rashes Psychiatric: Present: Alert, Oriented x 3, Normal Insight, Normal Concentration Medical Decision Making ED Course and Treatment: 03/08/18 19:27 Impression: 52 year old male who presents to the Emergency department complaining of palpitations/rapid heart rate since yesterday and then again today while sitting at home. Plan: -- EKG -- Labs -- X-Ray of chest -- Aspirin 325mg PO -- Lopressor 25mg PO -- Reassess and disposition Prior Visits: Notes and results from previous visits were reviewed. Patient was last seen in the emergency department on 10/03/17 for sudden onset of lightheadedness. Pt was discharged home in good condition and directed to follow up with PMD. Progress Notes: 03/08/18 21:[address] Yepez, who is aware and agrees with plan. Accepts pt in to hospitalist service. residential sales rep notified. - RAD Interpretation Narrative RAD Interpretations (Text): 03/08/18 21:16 CXR-No acute process Radiology Orders: 03/08/18 19:31 CHEST PORTABLE [RAD] Stat [employer] Service Representative: ED Physician - EKG Interpretation EKG Interpretation (Text): 03/08/18 19:30 EKG-Sinus tachycardia @ 110,incomplete RBBB,inferior infarct,NSSTT changes Interpreted by ED Physician: Yes Type: 12 lead EKG - Medication Orders Current Medication Orders: Discontinued Medications Aspirin (Aspirin) 325 mg PO ONCE STA Stop: 03/08/18 19:33 Last Admin: 03/08/18 20:13 Dose: 325 mg Metoprolol Tartrate (Lopressor) 25 mg PO ONCE STA Stop: 03/08/18 19:33 Last Admin: 03/08/18 20:13 Dose: 25 mg MAR Pulse and Blood Pressure Document 03/08/18 20:13 OCS (Rec: 03/08/18 20:13 OCS [id number]) Pulse Pulse Rate (60-90 beats/min) 75 Blood Pressure Blood Pressure (100/60-150/90 mm Hg) 131/88 - Scribe Statement The provider has reviewed the documentation as recorded by the Lauraibe Christina Oliverah All medical record entries made by the Pacheco were at my direction and personally dictated by me. I have reviewed the chart and agree that the record accurately reflects my personal performance of the history, physical exam, medical decision making, and the department course for this patient. I have also personally directed, reviewed, and agree with the discharge instructions and disposition. Disposition/Present on Arrival - Present on Arrival Any Indicators Present on Arrival: No History of DVT/PE: No History of Uncontrolled Diabetes: No Urinary Catheter: No History of Decub. Ulcer: No History Surgical Site Infection Following: None - Disposition Have Diagnosis and Disposition been Completed?: Yes Diagnosis: Chest pain, Tachycardia Disposition: HOSPITALIZED Disposition Time: 21:23 Patient Problems: Current Active Problems Problem Status Onset Chest pain Acute Tachycardia Acute Condition: STABLE
[2018-03-08 20:43] LABS: ALB/GLOB RATIO 1.4 (1.1-1.8); ALBUMIN 4.3 g/dL (3.0-4.8); ALT/SGPT 40 U/L (7-56); AST/SGOT 39 U/L (17-59); BLOOD UREA NITROGEN 12 mg/dL (7-21); CALCIUM 9.4 mg/dL (8.4-10.5); GFR NON-AFRICAN AMERICAN > 60
[2018-03-08 20:55] LABS: B-TYPE NATRIURETIC PEPTIDE 50.1 pg/mL (0-450); D DIMER < 200 ng/mlDDU (0-243); INR 0.97; PARTIAL THROMBOPLASTIN TIME 29.7 Seconds (25.1-36.5); TROPONIN I < 0.01 ng/mL
--- NOTE | 2018-03-08 22:48 | CP.PCM.HP ---
History of Present Illness - History of Present Illness History of Present Illness: Jones Cooper, PGY-1 Medicine H&P Note for Dr. Yepez: CC: Palpitations Pt is a 52 yo M with pmhx of HTN, anxiety and CAD s/p ALEJANDRO (09/08) in [facility] who presents to the ED for palpitations since yesterday. He states that he noticed palpitations when he was at a basketball game with his son. He states that that episode lasted for a few minutes and then self resolved. He then states that he had another bout of palpitations today, which he states he has been feeling all day. He denies having any chest pain at all with any episode of the palpitations. He states that he was not exerting himself nor was anxious or in a state of distress when he noticed the palpitations. He reports being compliant with his medications. He reports that he has had something similar when he had a panic attack in the past, but is not as severe. He states that his symptoms have resolved. At this time he denies fevers, chills, lightheadedness, headaches, w eakness, numbness, tingling, sob, cough, chest pain, palpitations, abd pain, nausea, vomiting, constipation, diarrhea, dysuria or hematuria. 12point ROS as per above otherwise negative Pmhx: HTN, anxiety and STEMI (09/08) s/p ALEJANDRO in [facility] PSH: Denies Allergies: Penicillin - Rash Social Hx: quit in August smoked 1ppd x25 yrs, denies etoh, denies illicit drug use Family Hx: Mom: DM, Dad COPD PMD: Ana Paula Pharm: Nicolasa Present on Admission - Present on Admission Any Indicators Present on Admission: No Review of Systems - Review of Systems All systems: reviewed and no additional remarkable complaints except (noted in HPI above) Past Patient History - Infectious Disease Hx of Infectious Diseases: None - Tetanus Immunizations Tetanus Immunization: Unknown - Past Social History Smoking Status: Former Smoker - CARDIAC Hx Heart Attack: Yes Hx Hypertension: Yes - PULMONARY Hx Respiratory Disorders: No - NEUROLOGICAL Hx Neurological Disorder: No - HEENT Hx HEENT Problems: No - RENAL Hx Chronic Kidney Disease: No - ENDOCRINE/METABOLIC Hx Endocrine Disorders: No - HEMATOLOGICAL/ONCOLOGICAL Hx Blood Disorders: No - INTEGUMENTARY Hx Dermatological Problems: No - MUSCULOSKELETAL/RHEUMATOLOGICAL Hx Gout: Yes - GASTROINTESTINAL Hx Gastrointestinal Disorders: No - GENITOURINARY/GYNECOLOGICAL Hx Genitourinary Disorders: No - PSYCHIATRIC Hx Anxiety: Yes Hx Depression: Yes Hx Emotional Abuse: No Hx Physical Abuse: No Hx Substance Use: No - SURGICAL HISTORY Hx Coronary Stent: Yes (x1 08/2017) - ANESTHESIA Hx Anesthesia: Yes Hx Anesthesia Reactions: No Hx Malignant Hyperthermia: No Meds Allergies/Adverse Reactions: Allergies Allergy/AdvReac Type Severity Reaction Status Date / Time Penicillins Allergy RASH Verified 03/08/18 19:32 Physical Exam - Constitutional Appears: Well, Non-toxic, No Acute Distress - Head Exam Head Exam: ATRAUMATIC, NORMAL INSPECTION, NORMOCEPHALIC - Eye Exam Eye Exam: EOMI, Normal appearance, PERRL - Respiratory Exam Respiratory Exam: Clear to Auscultation Bilateral, NORMAL BREATHING PATTERN. absent: Accessory Muscle Use, Decreased Breath Sounds, Rales, Rhonchi, Wheezes, Respiratory Distress, Stridor - Cardiovascular Exam Cardiovascular Exam: RRR, +S1, +S2. absent: Gallop, Rubs - GI/Abdominal Exam GI & Abdominal Exam: Normal Bowel Sounds, Soft. absent: Distended, Firm, Guarding, Rebound, Rigid, Tenderness - Extremities Exam Extremities exam: Positive for: normal capillary refill, normal inspection, pedal pulses present. Negative for: calf tenderness, pedal edema - Back Exam Back exam: NORMAL INSPECTION. absent: CVA tenderness (L), CVA tenderness (R) - Neurological Exam Neurological exam: Alert, Oriented x3 - Psychiatric Exam Psychiatric exam: Normal Affect, Normal Mood - Skin Skin Exam: Dry, Normal Color, Warm Results - Vital Signs Recent Vital Signs: Last Vital Signs Temp 98.1 F 03/08/18 22:39 Pulse 71 03/08/18 22:39 Resp 16 03/08/18 22:39 BP 158/73 H 03/08/18 22:39 Pulse Ox 99 03/08/18 22:39 - Labs Result Diagrams: 03/08/18 20:10 03/08/18 20:10 Labs: Laboratory Results - last 24 hr 03/08/18 03/08/18 03/08/18 20:10 20:10 20:10 WBC 6.8 RBC 4.77 Hgb 14.6 Hct 41.8 L MCV 87.6 MCH 30.6 MCHC 34.9 RDW 12.6 Plt Count 264 MPV 9.4 PT 11.0 INR 0.97 APTT 29.7 D-Dimer, Quantitative < 200 Sodium 140 Potassium 3.9 Chloride 103 Carbon Dioxide 29 Anion Gap 12 BUN 12 Creatinine 1.0 Est GFR ( Amer) > 60 Est GFR (Non-Af Amer) > 60 Random Glucose 133 H Calcium 9.4 Total Bilirubin 0.4 AST 39 ALT 40 Alkaline Phosphatase 77 Lactate Dehydrogenase 391 Total Creatine Kinase 108 Troponin I < 0.01 NT-Pro-B Natriuret Pep 50.1 Total Protein 7.3 Albumin 4.3 Globulin 3.0 Albumin/Globulin Ratio 1.4 Assessment & Plan - Assessment and Plan (Free Text) Assessment: Pt is a 52 yo M with pmhx of HTN, anxiety and STEMI (09/08) s/p ALEJANDRO in [facility] who presents to the ED for palpitations since yesterday. Plan: 1. Palpitations: - Pt is completely asymptomatic at the time of exam - Admit to tele - TSH - Free T4 - Lipid Panel - Serial Trops - Serial EKG - A1c - UDS - ASA 81 qd - Cont home metoprolol - Cont to monitor 2. Hx of HTN: - Cont home Benicar, metoprolol 3. CAD s/p ALEJANDRO (09/08) - Cont home Asa - Cont home plavix 4. Hx of hyperlipidemia: - Cont home lipitor 5. PPX: GI: Protonix DVT: Lovenox Case seen and discussed with Dr. Lucho Cooper PGY-1
[2018-03-09 05:02] VITALS: BMI 35.4
[2018-03-09] MEDS ORDERED: Pneumococcal 23-Valent Vaccine IM ONE (05:03)
[2018-03-09] MEDS ORDERED: Influenza Vaccine 60 mcg/0.5 mL SYR (4YR UP) IM ONE (05:03)
[2018-03-09] MEDS ORDERED: Pantoprazole 40 mg EC Tab PO SCH (06:00)
[2018-03-09 08:00] LABS: BASO # 0.03 K/mm3 (0.0-2.0); BASO % 0.5 % (0.0-3.0); EOS # 0.2 (0.0-0.7); EOS % 3.4 % (1.5-5.0); GRAN # 3.12 (1.4-6.5); GRAN % 52.4 % (50.0-68.0); HEMOGLOBIN 14.5 g/dL (14.0-18.0); LYMPH # 1.6 (1.2-3.4); LYMPH % 27.6 % (22.0-35.0); MEAN CELL VOLUME 88.6 fl (80.0-105.0); MEAN CORPUSCULAR HEMOGLOBIN 30.5 pg (25.0-35.0); MEAN CORPUSCULAR HGB CONC 34.4 g/dl (31.0-37.0); MEAN PLATELET VOLUME 9.2 fl (7.0-11.0); MONO % 16.1 % (1.0-6.0); RBC 4.75 10^6/uL (3.5-6.1); RED CELL DISTRIBUTION WIDTH 12.9 % (11.5-14.5)
[2018-03-09] MEDS ORDERED: Metoprolol Succinate 50 mg XL Tab PO SCH (08:00)
[2018-03-09 08:22] LABS: LDL CHOLESTEROL 57 mg/dL (0-129); TROPONIN I < 0.01 ng/mL
[2018-03-09 08:31] LABS: FREE T4 1.25 ng/dL (0.78-2.19)
[2018-03-09 08:35] LABS: ALB/GLOB RATIO 1.3 (1.1-1.8); ALBUMIN 4.2 g/dL (3.0-4.8); ALT/SGPT 38 U/L (7-56); AST/SGOT 24 U/L (17-59); BLOOD UREA NITROGEN 12 mg/dL (7-21); CALCIUM 9.5 mg/dL (8.4-10.5); GFR NON-AFRICAN AMERICAN > 60; HDL CHOLESTEROL 31 mg/dL (29-60)
--- NOTE | 2018-03-09 08:59 | RAD ---
Date of service: 03/08/2018 HISTORY: sob COMPARISON: Portable chest 10/03/2017. FINDINGS: LUNGS: No infiltrates bilaterally. Diminished inspiratory volume is noted. PLEURA: No significant pleural effusion identified, no pneumothorax apparent. CARDIOVASCULAR: No aortic atherosclerotic calcification present. Stable prominent cardiac silhouette. No pulmonary vascular congestion. OSSEOUS STRUCTURES: No significant abnormalities. VISUALIZED UPPER ABDOMEN: Normal. OTHER FINDINGS: None. IMPRESSION: Diminished inspiratory volume. No infiltrate, pleural effusion, pneumothorax or pulmonary vascular congestion. Cardiac silhouette remains prominent appearing.
--- NOTE | 2018-03-09 09:22 | CARD ---
APPROVED REPORT Date of service: 03/09/2018 EKG Measurement Heart [id number] <Conclusion> Normal sinus rhythm RVCD JEANNA, old C/W ECG 03/08/18: the rate is slower
--- NOTE | 2018-03-09 09:28 | CARD ---
APPROVED REPORT Date of service: 03/09/2018 EKG Measurement Heart [id number] [place] [id number] <Conclusion> Normal sinus rhythm Inferior infarct, old No change
[2018-03-09] MEDS ORDERED: OLMESARTAN MEDOXOMIL PO SCH (10:00)
[2018-03-09] MEDS ORDERED: Enoxaparin 40 mg Syringe SC SCH (10:00)
--- NOTE | 2018-03-09 13:24 | CARD ---
APPROVED REPORT Date of service: 03/08/2018 EKG Measurement Heart [id number] [place] [id number] <Conclusion> Sinus tachycardia Incomplete right bundle branch block Inferior infarct, age undetermined Abnormal ECG
[2018-03-09 14:00] LABS: BARBITURATES, UR NEGATIVE (NEGATIVE); BENZODIAZEPINES, UR NEGATIVE (NEGATIVE); OPIATES, UR NEGATIVE (NEGATIVE); PHENCYCLIDINE, UR NEGATIVE (NEGATIVE)
[2018-03-09 14:50] VITALS: BP 128/80; PULSE 70; RESP 18; TEMP 97.9
[2018-03-09 14:52] VITALS: O2SAT 93
--- NOTE | 2018-03-09 18:58 | CON ---
DATE: 05/10/2017 INDICATIONS: Palpitations, rapid heart action. HISTORY OF PRESENT ILLNESS: This is a 52-year-old man, known to our practice, admitted through the emergency room yesterday with several days of intermittent palpitations, sensation of rapid heart action and vague panic sensation. Yesterday, after work, he noted increased palpitations and rapid heart action and came to the emergency room. EKG showed sinus tachycardia at about 110 beats per minute. There was no chest pain, orthopnea, PND, syncope, presyncope, lightheadedness, vertigo, edema, claudication, fever, chills, cough, sputum production, hemoptysis, abdominal pain, nausea, vomiting, diarrhea, constipation, or melena. PAST MEDICAL HISTORY: His past medical history is notable for coronary artery disease. He presented as a cold heart in August of this year. At that time, cardiac catheterization disclosed severe right coronary lesion, which was stented. There was also moderate disease in the circumflex artery and in the distal right coronary artery. He has been treated medically since that time. There is a history of hypertension, cigarette smoking, which he stopped in August after the myocardial infarction. There is a history of anxiety and possible panic attack in the past. There is no history of rheumatic fever, congestive heart failure, arrhythmia, stroke, TIA, diabetes or gout. MEDICATIONS: At the time of admission include aspirin, Plavix, metoprolol, Benicar, Lipitor. ALLERGIES: HE NOTES AN ALLERGY TO PENICILLIN. SOCIAL HISTORY: He is employed in sales. He is ambulatory. He no longer smokes. He drinks occasional beer including half to be year yesterday. FAMILY HISTORY: Not notable for early heart disease. REVIEW OF SYSTEMS: A 10-point review of systems otherwise unremarkable except as noted above. PHYSICAL EXAMINATION: GENERAL: He is a well-developed male, lying in bed, in the CCU, in no acute distress. VITAL SIGNS: Notable for sinus rhythm, 58 beats per minute. He is afebrile. Blood pressure 114/66, respirations 14-16, O2 sat 97-99% on room air and CPAP during the night. HEENT: Exam reveals no neck vein distention, thyromegaly, carotid bruit. Mucous membranes moist. Conjunctivae pink. NECK: Supple. LUNGS: Lung montoya clear. HEART: Examination of the heart revealed diminished first and second heart sounds. PMI is not palpable. ABDOMEN: Soft, obese, benign. No mass, organomegaly, tenderness, rebound, guarding, CVA tenderness, or palpable abdominal aortic aneurysm. EXTREMITIES: Extremity exam revealed no cyanosis, clubbing or edema. NEUROLOGICALLY: He is awake, alert and oriented. SKIN: Warm and dry. No rash or cellulitis. PSYCHIATRIC: Normal as to mood and affect. LABORATORY AND IMAGING STUDIES: EKG demonstrates sinus tachycardia, inferior wall myocardial infarction, poor R-wave progression, nonspecific ST wave changes. No change compared to a prior EKG. Chest x-ray reveals diminished inspiratory volume, no infiltrate, effusion or vascular congestion, see report. CBC is unremarkable. PT/INR, PTT and D-dimer are unremarkable. Electrolytes, BUN, creatinine, blood sugar, unremarkable. Magnesium 2.2. LFTs unremarkable. CK 108. Three troponins are negative. BNP 50.1. Thyroid functions unremarkable. Total cholesterol 99, triglycerides 151, LDL 57, HDL 31. IMPRESSION: Lincoln Quintana is a 52-year-old man with known coronary artery disease, status post acute myocardial infarction with coronary intervention in August 2017, admitted with heart racing and palpitations sensation with anxiety, found to have sinus tachycardia at the time of admission to the emergency room. There is no evidence of acute changes on his EKG. There has been no arrhythmia while in the CCU. Troponins are negative. PLAN: At this time, I will review his old records. He can be out of bed and advanced to a telemetry floor. If there are no further symptoms, he can be discharged later today with outpatient followup with Dr. Powell, who can arrange a nuclear stress test and an event recorder for him. He will keep us informed of any symptoms. I will continue his medications including aspirin, Plavix, metoprolol, Lipitor, and Benicar. Burton Blood MD MTDJocelyne
--- NOTE | 2018-03-09 21:41 | CP.PCM.DIS ---
<Nehemias Patel - Last Filed: 03/09/18 21:41> Provider - Provider Date of Admission: 03/08/18 21:52 Attending physician: Tala Patel DO Primary care physician: Olivier Goss MD Consults: 03/08/18 21:36 Consult [Physician Consult] Stat Comment: dyspnea Consulting Provider: Ezequiel Powell Consulting Physician: Ezequiel Powell Reason for Consult: dyspnea 03/09/18 05:03 Inpatient DELIVERER FOOD Core Measures Referral Routine Comment: Physician Instructions: Reason For Exam: Please evaluate pt. Transition In Care/Readmission Reduction Routine Comment: Physician Instructions: Reason For Exam: Please evaluate pt. Time Spent in preparation of Discharge (in minutes): 45 Diagnosis - Discharge Diagnosis (1) Chest pain Status: Acute (2) Tachycardia Status: Acute Hospital Course - Lab Results Lab Results: Most Recent Lab Values WBC 6.0 10^3/uL (4.5-11.0) 03/09/18 07:50 RBC 4.75 10^6/uL (3.5-6.1) 03/09/18 07:50 Hgb 14.5 g/dL (14.0-18.0) 03/09/18 07:50 Hct 42.1 % (42.0-52.0) 03/09/18 07:50 MCV 88.6 fl (80.0-105.0) 03/09/18 07:50 MCH 30.5 pg (25.0-35.0) 03/09/18 07:50 MCHC 34.4 g/dl (31.0-37.0) 03/09/18 07:50 RDW 12.9 % (11.5-14.5) 03/09/18 07:50 Plt Count 248 10^3/uL (120.0-450.0) 03/09/18 07:50 MPV 9.2 fl (7.0-11.0) 03/09/18 07:50 Gran % 52.4 % (50.0-68.0) 03/09/18 07:50 Lymph % (Auto) 27.6 % (22.0-35.0) 03/09/18 07:50 [place] % (Auto) 16.1 % (1.0-6.0) H 03/09/18 07:50 Eos % (Auto) 3.4 % (1.5-5.0) 03/09/18 07:50 Baso % (Auto) 0.5 % (0.0-3.0) 03/09/18 07:50 Gran # 3.12 (1.4-6.5) 03/09/18 07:50 Lymph # (Auto) 1.6 (1.2-3.4) 03/09/18 07:50 [place] # (Auto) 1.0 (0.1-0.6) H 03/09/18 07:50 Eos # (Auto) 0.2 (0.0-0.7) 03/09/18 07:50 Baso # (Auto) 0.03 K/mm3 (0.0-2.0) 03/09/18 07:50 PT 11.0 SECONDS (9.4-12.5) 03/08/18 20:10 INR 0.97 03/08/18 20:10 APTT 29.7 Seconds (25.1-36.5) 03/08/18 20:10 D-Dimer, Quantitative < 200 ng/mlDDU (0-243) 03/08/18 20:10 Sodium 142 mmol/L (132-148) 03/09/18 07:50 Potassium 4.2 mmol/L (3.6-5.0) 03/09/18 07:50 Chloride 103 mmol/L (98-107) 03/09/18 07:50 Carbon Dioxide 31 mmol/L (21-33) 03/09/18 07:50 Anion Gap 12 (10-20) 03/09/18 07:50 BUN 12 mg/dL (7-21) 03/09/18 07:50 Creatinine 1.1 mg/dl (0.8-1.5) 03/09/18 07:50 Est GFR ( Amer) > 60 03/09/18 07:50 Est GFR (Non-Af Amer) > 60 03/09/18 07:50 Random Glucose 105 mg/dL (70-110) 03/09/18 07:50 Hemoglobin A1c 5.2 % (4.2-6.5) 03/08/18 20:10 Calcium 9.5 mg/dL (8.4-10.5) 03/09/18 07:50 Phosphorus 4.0 mg/dL (2.5-4.5) 03/09/18 07:50 Magnesium 2.2 mg/dL (1.7-2.2) 03/09/18 07:50 Total Bilirubin 0.5 mg/dL (0.2-1.3) 03/09/18 07:50 AST 24 U/L (17-59) 03/09/18 07:50 ALT 38 U/L (7-56) 03/09/18 07:50 Alkaline Phosphatase 69 U/L (38-126) 03/09/18 07:50 Lactate Dehydrogenase 391 U/L (333-699) 03/08/18 20:10 Total Creatine Kinase 108 U/L (35-230) 03/08/18 20:10 Troponin I < 0.01 ng/mL 03/09/18 07:50 NT-Pro-B Natriuret Pep 57.5 pg/mL (0-450) 03/08/18 22:35 Total Protein 7.3 g/dL (5.8-8.3) 03/09/18 07:50 Albumin 4.2 g/dL (3.0-4.8) 03/09/18 07:50 Globulin 3.1 gm/dL 03/09/18 07:50 Albumin/Globulin Ratio 1.3 (1.1-1.8) 03/09/18 07:50 Triglycerides 151 mg/dL (35-160) 03/09/18 07:50 Cholesterol 99 mg/dL (130-200) L 03/09/18 07:50 LDL Cholesterol Direct 57 mg/dL (0-129) 03/09/18 07:50 HDL Cholesterol 31 mg/dL (29-60) 03/09/18 07:50 Free T4 1.25 ng/dL (0.78-2.19) 03/09/18 07:50 TSH 3rd Generation 2.84 mIU/mL (0.46-4.68) 03/09/18 07:50 Urine Opiates Screen Negative (NEGATIVE) 03/09/18 13:10 Urine Methadone Screen Negative (NEGATIVE) 03/09/18 13:10 Ur Barbiturates Screen Negative (NEGATIVE) 03/09/18 13:10 Ur Phencyclidine Scrn Negative (NEGATIVE) 03/09/18 13:10 Ur Amphetamines Screen Negative (NEGATIVE) 03/09/18 13:10 U Benzodiazepines Scrn Negative (NEGATIVE) 03/09/18 13:10 U Oth Cocaine Metabols Negative (NEGATIVE) 03/09/18 13:10 U Cannabinoids Screen Negative (NEGATIVE) 03/09/18 13:10 - Hospital Course Hospital Course: Nehemias Patel DO PGY1 - Internal Medicine Production Clerks Supervisor - Hospitalist Discharge Summary: 52M w/ a PMH of HTN, Anxiety, and CAD s/p ALEJANDRO 08/2017 in [facility] presented to [facility] [place] ED late night 03/08 for complaints of palpitations which have been ongoing from 1 day prior to admission. Patient denied any chest pain at time of admission; denied sob/chinchilla, and any exacerbating/remitting factors. Upon admission EKG showed patient to have sinus tachycardia but otherwise unremarkable. CXR was within normal limit, and troponins were trended x3 which all returned negative. Repeat EKG in the AM showed no interval change; telemetry monitoring overnight revealed no arrhythmia. Cardiology was consulted and recommended outpatient follow up with no acute intervention at this time. Patient was subsequently discharged. Disclaimer: This is a brief synopsis of the patient's hospital course, for a full refer to medical record for full hospital course. - Date & Time of H&P Date of H&P: 03/09/18 Time of H&P: 00:05 Discharge Exam - Head Exam Head Exam: ATRAUMATIC, NORMAL INSPECTION, NORMOCEPHALIC - Eye Exam Eye Exam: EOMI, Normal appearance, PERRL - Respiratory Exam Respiratory Exam: Clear to PA & Lateral, NORMAL BREATHING PATTERN, UNREMARKABLE - Cardiovascular Exam Cardiovascular Exam: REGULAR RHYTHM, RRR, +S1, +S2 - GI/Abdominal Exam GI & Abdominal Exam: Normal Bowel Sounds, Unremarkable - Neurological Exam Neurological exam: Alert, CN II-XII Intact - Psychiatric Exam Psychiatric exam: Normal Affect, Normal Mood - Skin Skin Exam: Dry, Intact, Normal Color, Warm Discharge Plan - Follow Up Plan Condition: GOOD Disposition: HOME/ ROUTINE Instructions: Chest Pain (DC), Palpitations (DC), Tachycardia (DC) Additional Instructions: You were admitted to the hospital for chest pain Please schedule follow up with your deep well contractor Dr. Powell within 3-5 days of discharge. Please schedule follow up with your primary care doctor, Dr. Goss within 3-5 days of discharge Please continue taking all of your home medication as previously prescribed. If your symptoms return, or new concerning symptoms arise, please go to our nearest emergency department immediately. Nursing See care notes provided for further instructions. Referrals: Olivier Goss MD [Primary Care Provider] - Burton Blood MD [Staff Provider] - <Tala Patel - Last Filed: 03/10/18 12:26> Provider - Provider Date of Admission: 03/08/18 21:52 Attending physician: Tala Patel DO Primary care physician: Olivier Goss MD Consults: 03/08/18 21:36 Consult [Physician Consult] Stat Comment: dyspnea Consulting Provider: Ezequiel Powell Consulting Physician: Ezequiel Powell Reason for Consult: dyspnea 03/09/18 05:03 Inpatient DELIVERER FOOD Core Measures Referral Routine Comment: Physician Instructions: Reason For Exam: Please evaluate pt. Transition In Care/Readmission Reduction Routine Comment: Physician Instructions: Reason For Exam: Please evaluate pt. Hospital Course - Lab Results Lab Results: Most Recent Lab Values WBC 6.0 10^3/uL (4.5-11.0) 03/09/18 07:50 RBC 4.75 10^6/uL (3.5-6.1) 03/09/18 07:50 Hgb 14.5 g/dL (14.0-18.0) 03/09/18 07:50 Hct 42.1 % (42.0-52.0) 03/09/18 07:50 MCV 88.6 fl (80.0-105.0) 03/09/18 07:50 MCH 30.5 pg (25.0-35.0) 03/09/18 07:50 MCHC 34.4 g/dl (31.0-37.0) 03/09/18 07:50 RDW 12.9 % (11.5-14.5) 03/09/18 07:50 Plt Count 248 10^3/uL (120.0-450.0) 03/09/18 07:50 MPV 9.2 fl (7.0-11.0) 03/09/18 07:50 Gran % 52.4 % (50.0-68.0) 03/09/18 07:50 Lymph % (Auto) 27.6 % (22.0-35.0) 03/09/18 07:50 [place] % (Auto) 16.1 % (1.0-6.0) H 03/09/18 07:50 Eos % (Auto) 3.4 % (1.5-5.0) 03/09/18 07:50 Baso % (Auto) 0.5 % (0.0-3.0) 03/09/18 07:50 Gran # 3.12 (1.4-6.5) 03/09/18 07:50 Lymph # (Auto) 1.6 (1.2-3.4) 03/09/18 07:50 [place] # (Auto) 1.0 (0.1-0.6) H 03/09/18 07:50 Eos # (Auto) 0.2 (0.0-0.7) 03/09/18 07:50 Baso # (Auto) 0.03 K/mm3 (0.0-2.0) 03/09/18 07:50 PT 11.0 SECONDS (9.4-12.5) 03/08/18 20:10 INR 0.97 03/08/18 20:10 APTT 29.7 Seconds (25.1-36.5) 03/08/18 20:10 D-Dimer, Quantitative < 200 ng/mlDDU (0-243) 03/08/18 20:10 Sodium 142 mmol/L (132-148) 03/09/18 07:50 Potassium 4.2 mmol/L (3.6-5.0) 03/09/18 07:50 Chloride 103 mmol/L (98-107) 03/09/18 07:50 Carbon Dioxide 31 mmol/L (21-33) 03/09/18 07:50 Anion Gap 12 (10-20) 03/09/18 07:50 BUN 12 mg/dL (7-21) 03/09/18 07:50 Creatinine 1.1 mg/dl (0.8-1.5) 03/09/18 07:50 Est GFR ( Amer) > 60 03/09/18 07:50 Est GFR (Non-Af Amer) > 60 03/09/18 07:50 Random Glucose 105 mg/dL (70-110) 03/09/18 07:50 Hemoglobin A1c 5.2 % (4.2-6.5) 03/08/18 20:10 Calcium 9.5 mg/dL (8.4-10.5) 03/09/18 07:50 Phosphorus 4.0 mg/dL (2.5-4.5) 03/09/18 07:50 Magnesium 2.2 mg/dL (1.7-2.2) 03/09/18 07:50 Total Bilirubin 0.5 mg/dL (0.2-1.3) 03/09/18 07:50 AST 24 U/L (17-59) 03/09/18 07:50 ALT 38 U/L (7-56) 03/09/18 07:50 Alkaline Phosphatase 69 U/L (38-126) 03/09/18 07:50 Lactate Dehydrogenase 391 U/L (333-699) 03/08/18 20:10 Total Creatine Kinase 108 U/L (35-230) 03/08/18 20:10 Troponin I < 0.01 ng/mL 03/09/18 07:50 NT-Pro-B Natriuret Pep 57.5 pg/mL (0-450) 03/08/18 22:35 Total Protein 7.3 g/dL (5.8-8.3) 03/09/18 07:50 Albumin 4.2 g/dL (3.0-4.8) 03/09/18 07:50 Globulin 3.1 gm/dL 03/09/18 07:50 Albumin/Globulin Ratio 1.3 (1.1-1.8) 03/09/18 07:50 Triglycerides 151 mg/dL (35-160) 03/09/18 07:50 Cholesterol 99 mg/dL (130-200) L 03/09/18 07:50 LDL Cholesterol Direct 57 mg/dL (0-129) 03/09/18 07:50 HDL Cholesterol 31 mg/dL (29-60) 03/09/18 07:50 Free T4 1.25 ng/dL (0.78-2.19) 03/09/18 07:50 TSH 3rd Generation 2.84 mIU/mL (0.46-4.68) 03/09/18 07:50 Urine Opiates Screen Negative (NEGATIVE) 03/09/18 13:10 Urine Methadone Screen Negative (NEGATIVE) 03/09/18 13:10 Ur Barbiturates Screen Negative (NEGATIVE) 03/09/18 13:10 Ur Phencyclidine Scrn Negative (NEGATIVE) 03/09/18 13:10 Ur Amphetamines Screen Negative (NEGATIVE) 03/09/18 13:10 U Benzodiazepines Scrn Negative (NEGATIVE) 03/09/18 13:10 U Oth Cocaine Metabols Negative (NEGATIVE) 03/09/18 13:10 U Cannabinoids Screen Negative (NEGATIVE) 03/09/18 13:10 Attending/Attestation - Attestation I have personally seen and examined this patient.: Yes I have fully participated in the care of the patient.: Yes I have reviewed all pertinent clinical information, including history, physical exam and plan: Yes Notes (Text): Patient seen and examined by me with resident 11:40AM on 03/09/18. Case including discharge plan discussed with resident. Agree with above with following additions/corrections. Patient is a 52-year-old male with past medical history significant for hypertension, anxiety, and coronary artery disease status post drug-eluting stent placement and August 2017 that presented to the emergency room with palpitations and chest discomfort. Please see H&P for full details. Patient was admitted with palpitations, hypertension, coronary artery disease, and hyperlipidemia. Cardiology was consulted. Per cardiology, patient to follow up outpatient with Dr. Smallwood for possible stress tests and loop recorder. Troponins were within normal limits 3. No leukocytosis. Afebrile. D-dimer was less than 200. TSH was 2.84. Free T4 is 1.25. Total cholesterol 99. Triglycerides 151. HDL 57. BNP is 57.5. UDS negative. Vital signs remained stable. Patient's symptoms resolved. He was cleared for discharge by cardiology. Patient was discharged home. On day of discharge, patient states he feels much better. Palpitations and chest discomfort resolved. No abdominal pain. No nausea or vomiting. Patient is tolerating diet. No diarrhea or constipation. No chest pain. No shortness of breath. No headaches or dizziness. No change in vision. No fevers or chills. No dysuria. Physical exam: General: Awake and alert lying in bed in no acute distress HEENT: Normocephalic, atraumatic. Extraocular muscles intact, pupils equal and reactive, no scleral icterus. Oropharynx is pink moist. Neck is supple. Hearing grossly intact. Ears and nose externally unremarkable. Cardiovascular: Normal rhythm. Normal S1 and S2. No murmurs, rubs, or gallops appreciated Pulmonary: Normal respiratory effort. No rhonchi, rales, or wheezing appreciated Gastrointestinal: Soft, nondistended. Nontender. Positive bowel sounds all 4 quadrants. No guarding. Globular abdomen. Musculoskeletal: Moves all extremities. No edema appreciated. No calf tenderness. No CVA tenderness. Central nervous system: AAO 3. CN2-12 grossly intact. Dermatologic: Skin warm and dry. Please see chart for full details. Follow up instructions: Patient to follow-up with primary care doctor within 3-5 days. Patient to follow-up with deep well contractor Dr. Powell within 3-5 days of discharge. Patient to continue all home medications. Per patient, he did not need any refills on medications. All instructions explained to patient in detail. Patient both understands and agrees to all instructions. Written instructions also given. Time spent in discharging the patient including chart review, medication reconciliation, discussion with the patient, medical unit secretary, consultants, and nursing staff was approximately 35 minutes.
== END 2018-03-09 15:25 | disposition home or self-care (01) ==
LOC: ED 19:05 → ERH 21:52 → CCU 03-09 03:24
PROVIDERS: ADMIT Internal Medicine; ATTEND Hospitalist
DX: R00.0 Tachycardia, unspecified (principal); I25.10 Atherosclerotic heart disease of native coronary artery without angina pectoris; I25.2 Old myocardial infarction; I10 Essential (primary) hypertension; E78.5 Hyperlipidemia, unspecified; Z95.5 Presence of coronary angioplasty implant and graft; Z87.891 Personal history of nicotine dependence
CPT/HCPCS: 71045; 80053; 80061; 82550; 83036; 83615; 83735; 83880; 84100; 84439; 84443; 84484; 85025; 85027; 85378; 85610; 85730; 87081; 93005; 94660; 99285; G0378; G0480; J1650

== ENCOUNTER 2018-04-08 03:40 | Emergency (ER) | payer BC ==
[2018-04-08 03:42] VITALS: BMI 35.6
--- NOTE | 2018-04-08 03:52 | ED PDOC ---
Arrival/HPI - General Chief Complaint: Chest Pain Time Seen by Provider: 04/08/18 03:43 Historian: Patient - History of Present Illness Narrative History of Present Illness (Text): 04/08/18 03:52 Lincoln Hendricks is a 52 year old male, whose past medical history includes hypertension, CAD with cardiac stents, STEMI, and anxiety, who presents to the Emergency department brought in by EMS for chest pain. Patient states he woke up today with chest pain and racing heart rate. Patient states he took Aspirin 325mg at home, became concerned, and notified EMS. Patient states he has not had undergone a stress test recently. Patient denies any fever, chills, nausea, vomiting, diarrhea, urinary symptoms, back pain, neck pain, headache, dizziness, or any other complaints. Symptom Onset: Gradual Symptom Course: Unchanged Activities at Onset: Light Context: Home Past Medical History - Provider Review Nursing Documentation Reviewed: Yes - Infectious Disease Hx of Infectious Diseases: None - Tetanus Immunization Tetanus Immunization: Unknown - Cardiac Hx SD: Yes Hx Hypertension: Yes - Pulmonary Hx Respiratory Disorders: No - Neurological Hx Neurological Disorder: No - HEENT Hx HEENT Disorder: No - Renal Hx Renal Disorder: No - Endocrine/Metabolic Hx Endocrine Disorders: No - Hematological/Oncological Hx Blood Disorders: No - Integumentary Hx Dermatological Disorder: No - Musculoskeletal/Rheumatological Hx Gout: Yes - Gastrointestinal Hx Gastrointestinal Disorders: No - Genitourinary/Gynecological Hx Genitourinary Disorders: No - Psychiatric Hx Anxiety: Yes Hx Depression: Yes Hx Emotional Abuse: No Hx Physical Abuse: No Hx Substance Use: No - Past Surgical History Past Surgical History: No Previous - Surgical History Hx Coronary Stent: Yes (x1 08/2017) - Anesthesia Hx Anesthesia: Yes Hx Anesthesia Reactions: No Hx Malignant Hyperthermia: No - Suicidal Assessment Feels Threatened In Home Enviroment: No Family/Social History - Physician Review Nursing Documentation Reviewed: Yes Family/Social History: Unknown Family HX Smoking Status: Former Smoker Hx Alcohol Use: Yes Hx Substance Use: No Hx Substance Use Treatment: No Allergies/Home Meds Allergies/Adverse Reactions: Allergies Penicillins Allergy (Verified 04/08/18 03:44) RASH Home Medications: Home Meds Medication Instructions Recorded Confirmed Olmesartan Medoxomil [Benicar] 1 tab PO DAILY 09/09/17 03/08/18 Clopidogrel [Plavix] 75 mg PO DAILY 10/03/17 03/08/18 Aspirin [Lo-Dose Aspirin EC] 81 mg PO DAILY 03/09/18 03/09/18 Review of Systems - Physician Review All systems were reviewed & negative as marked: Yes - Review of Systems Constitutional: Normal. absent: Fevers Eyes: Normal ENT: Normal Respiratory: Normal. absent: SOB, Cough Cardiovascular: Chest Pain, Palpitations Gastrointestinal: Normal. absent: Abdominal Pain, Diarrhea, Nausea, Vomiting Genitourinary Male: Normal. absent: Dysuria, Frequency, Hematuria, Urinary Output Changes Musculoskeletal: Normal. absent: Back Pain, Neck Pain Skin: Normal. absent: Rash Neurological: Normal. absent: Headache, Dizziness Endocrine: Normal Hemo/Lymphatic: Normal Psychiatric: Normal Physical Exam Vital Signs Reviewed: Yes Temperature: Afebrile Blood Pressure: Normal Pulse: Regular Respiratory Rate: Normal Appearance: Positive for: Well-Appearing, Non-Toxic, Comfortable Pain Distress: None Mental Status: Positive for: Alert and Oriented X 3 - Systems Exam Head: Present: Atraumatic, Normocephalic Pupils: Present: PERRL Extroacular Muscles: Present: EOMI Conjunctiva: Present: Normal Mouth: Present: Moist Mucous Membranes Neck: Present: Normal Range of Motion Respiratory/Chest: Present: Clear to Auscultation, Good Air Exchange. No: Respiratory Distress, Accessory Muscle Use Cardiovascular: Present: Regular Rate and Rhythm, Normal S1, S2. No: Murmurs Abdomen: No: Tenderness, Distention, Peritoneal Signs Back: Present: Normal Inspection Upper Extremity: Present: Normal Inspection. No: Cyanosis, Edema Lower Extremity: Present: Normal Inspection. No: Edema Neurological: Present: GCS=15, CN II-XII Intact, Speech Normal Skin: Present: Warm, Dry, Normal Color. No: Rashes Psychiatric: Present: Alert, Oriented x 3, Normal Insight, Normal Concentration Medical Decision Making ED Course and Treatment: 04/08/18 03:52 Impression: 52 year old male complaining of chest pain and rapid heart rate. Plan: -- EKG -- Chest X-ray -- Labs, cardiac enzymes -- Urinalysis -- Reassess and disposition Prior Visits: Notes and results from previous visits were reviewed. Progress Notes: Reviewed EKG, NSR at 70 bpm. Inferior infarct. Non-specific ST/T wave changes. 04/08/18 04:15 Chest X-ray reviewed, shows no acute processes. 04/08/18 05:06 The patient declines admission, and wishes to leave the Emergency Department. This action is against my medical advice to the patient and the decision was made with informed refusal. The patient was told that admission is necessary and a full explanation of the rationale was given. The risks of leaving were explained to the patient and include, but are not limited to, worsening of known or currently unknown conditions, permanent disability and from undiagnosed or untreated conditions The patient has the capacity to make this informed decision and understands the clinical situation and my explanation of the risks of leaving. The patient voluntarily accepts these risks, and a signed AMA form documenting our conversation was obtained. The patient was given the opportunity to ask questions and reconsider. The patient was encouraged to return to the Emergency Department at any time for further care. - Lab Interpretations I have reviewed the lab results: Yes - RAD Interpretation Radiology Orders: 04/08/18 03:46 CHEST PORTABLE [RAD] Stat Library Media Assistant: Radiologist - EKG Interpretation Interpreted by ED Physician: Yes Type: 12 lead EKG - Scribe Statement The provider has reviewed the documentation as recorded by the Scribe Sagrario Johnson Provider Scribe Attestation: All medical record entries made by the Scribe were at my direction and personally dictated by me. I have reviewed the chart and agree that the record accurately reflects my personal performance of the history, physical exam, medical decision making, and the department course for this patient. I have also personally directed, reviewed, and agree with the discharge instructions and disposition. Disposition/Present on Arrival - Present on Arrival Any Indicators Present on Arrival: No History of DVT/PE: No History of Uncontrolled Diabetes: No Urinary Catheter: No History of Decub. Ulcer: No History Surgical Site Infection Following: None - Disposition Have Diagnosis and Disposition been Completed?: Yes Diagnosis: Chest pain Disposition: AGAINST MEDICAL ADVICE Disposition Time: 05:00 Condition: UNKNOWN Discharge Instructions (ExitCare): Chest Pain (ED) Referrals: Olivier Goss MD [Primary Care Provider] - Follow up with primary Forms: Subimage (Czech)
[2018-04-08 04:23] LABS: INR 0.87; PARTIAL THROMBOPLASTIN TIME 27.8 Seconds (25.1-36.5)
[2018-04-08 04:25] LABS: ALB/GLOB RATIO 1.4 (1.1-1.8); ALBUMIN 4.2 g/dL (3.0-4.8); ALT/SGPT 47 U/L (7-56); AST/SGOT 24 U/L (17-59); BLOOD UREA NITROGEN 17 mg/dL (7-21); GFR NON-AFRICAN AMERICAN > 60; PROTHROMBIN TIME 9.9 SECONDS (9.4-12.5)
[2018-04-08 04:28] LABS: BASO # 0.04 K/mm3 (0.0-2.0); BASO % 0.5 % (0.0-3.0); EOS # 0.2 (0.0-0.7); EOS % 2.5 % (1.5-5.0); GRAN # 3.32 (1.4-6.5); GRAN % 42.3 % (50.0-68.0); LYMPH # 2.9 (1.2-3.4); MEAN CELL VOLUME 88.1 fl (80.0-105.0); MEAN CORPUSCULAR HEMOGLOBIN 30.2 pg (25.0-35.0); MEAN CORPUSCULAR HGB CONC 34.2 g/dl (31.0-37.0); MEAN PLATELET VOLUME 9.2 fl (7.0-11.0); MONO # 1.4 (0.1-0.6); MONO % 17.7 % (1.0-6.0); RBC 4.64 10^6/uL (3.5-6.1); WHITE BLOOD COUNT 7.9 10^3/uL (4.5-11.0)
[2018-04-08 04:33] LABS: TROPONIN I < 0.01 ng/mL
[2018-04-08 04:41] VITALS: RESP 18
[2018-04-08 05:43] VITALS: BP 108/65; PULSE 68; TEMP 98; O2SAT 96
--- NOTE | 2018-04-08 09:34 | CARD ---
APPROVED REPORT Date of service: 04/08/2018 EKG Measurement Heart [id number] <Conclusion> Normal sinus rhythm Inferior infarct, age undetermined Abnormal ECG
--- NOTE | 2018-04-08 10:41 | RAD ---
Date of service: 04/08/2018 HISTORY: cp COMPARISON: 03/08/2018 FINDINGS: LUNGS: No active pulmonary disease. PLEURA: No significant pleural effusion identified, no pneumothorax apparent. CARDIOVASCULAR: No aortic atherosclerotic calcification present. Normal cardiac size. No pulmonary vascular congestion. OSSEOUS STRUCTURES: No significant abnormalities. VISUALIZED UPPER ABDOMEN: Normal. OTHER FINDINGS: None. IMPRESSION: No active disease.
== END 2018-04-08 05:15 | disposition left against medical advice (07) ==
LOC: ED 03:40
DX: R07.9 Chest pain, unspecified (principal); I10 Essential (primary) hypertension; I25.10 Atherosclerotic heart disease of native coronary artery without angina pectoris; I25.2 Old myocardial infarction; F41.9 Anxiety disorder, unspecified